=== PATIENT | male | born 1930 | race Caucasian/White ===

== ENCOUNTER 2016-11-01 19:59 | Emergency (ER) | payer OTHER ==
[~2016-11-01] VITALS: Ht 172.7 cm; Wt 88.0 kg
[~2016-11-01 19:59] MED LIST: ACTOS 45 MG45 M1 PO; AMARYL2 MG PO; AMARYL4 MG PO; AMLODIPINE BESY10 MG PO; APAP650 PO; ASPIR 8181 MG PO; ATORVASTATIN CA20 MG PO; AVELOX 400 MG400 MG PO; B-100 COMPLEX1 EAC1 PO; BRILINTA90 MG PO; CALTRATE-600 W1 EACH PO; CASODEX 50 MG T50 M1 PO; ELIQUIS2.5 MG PO; ELIQUIS5 MG PO; FLOMAX PO; GLUCOVANCE 5-51 EACH PO; GLYSET PO; IRON; JANUVIA50 MG PO; K-DUR 20 MEQ T20 MEQ PO; LASIX 20 MG TAB20 MG; LASIX 20 MG TAB20 MG PO; LEVOTHYROXINE100 MC1 PO; LIPITOR 20 MG T20 M1 PO; LISINOPRIL2.5 MG PO; LISINOPRIL5 MG PO; LOTREL 5-20 MG1 EACH PO; LOVAZA1000 MG PO; LUPRON; LUPRON DEPOT22.5 MG IM; NEURONTIN 300300 M1 PO; NEURONTIN300 MG PO; PIOGLITAZONE15 MG; PLAVIX 75 MG TA75 M1 PO; PREDNISONE 5 MG5 MG PO; PROLIA60 MG/1 ML SQ; SYNTHROID100 MCG PO; TRIPILIX PO; VITAMIN B-625 MG PO; VITAMIN D1000 UNI1 PO; XGEVA120 MG/1.7 SQ
[2016-11-01] MEDS ORDERED: TRAMADOL 50 MG50 MG PO (21:21)
[2016-11-01] MEDS ORDERED: KEFLEX500 MG PO (21:21)
== END 2016-11-01 22:33 | disposition home or self-care (01) ==
LOC: ER 19:59
DX: S92.411B Displaced fracture of proximal phalanx of right great toe, initial encounter for open fracture (principal); I10 Essential (primary) hypertension; E11.9 Type 2 diabetes mellitus without complications; I25.2 Old myocardial infarction; Z95.9 Presence of cardiac and vascular implant and graft, unspecified; Z85.46 Personal history of malignant neoplasm of prostate; W22.8XXA Striking against or struck by other objects, initial encounter; Y93.89 Activity, other specified; Y92.89 Other specified places as the place of occurrence of the external cause; Y99.8 Other external cause status

== ENCOUNTER → 2019-02-14 | Outpatient (CLI) | payer OTHER ==
[~2019-02-14] MED LIST changes: +KEFLEX500 MG PO; +TRAMADOL 50 MG50 MG PO
== END ==
LOC: SJCVC 11:34
DX: I13.0 Hypertensive heart and chronic kidney disease with heart failure and stage 1 through stage 4 chronic kidney disease, or unspecified chronic kidney disease (principal); I50.9 Heart failure, unspecified; N18.9 Chronic kidney disease, unspecified; I25.10 Atherosclerotic heart disease of native coronary artery without angina pectoris; I48.91 Unspecified atrial fibrillation; E78.00 Pure hypercholesterolemia, unspecified; E78.5 Hyperlipidemia, unspecified; I25.2 Old myocardial infarction; Z79.82 Long term (current) use of aspirin; Z79.899 Other long term (current) drug therapy; Z87.891 Personal history of nicotine dependence

== ENCOUNTER → 2019-02-14 | Outpatient (CLI) | payer OTHER | LOC: SJCVC 12:24 | DX: I13.0 Hypertensive heart and chronic kidney disease with heart failure and stage 1 through stage 4 chronic kidney disease, or unspecified chronic kidney disease (principal); I50.9 Heart failure, unspecified; N18.9 Chronic kidney disease, unspecified; I25.10 Atherosclerotic heart disease of native coronary artery without angina pectoris; I48.91 Unspecified atrial fibrillation; E78.00 Pure hypercholesterolemia, unspecified; I25.2 Old myocardial infarction; E78.5 Hyperlipidemia, unspecified; Z79.82 Long term (current) use of aspirin; Z79.899 Other long term (current) drug therapy ==

== ENCOUNTER → 2019-02-14 | Outpatient (CLI) | payer OTHER ==
--- NOTE | 2019-02-14 12:10 | 2DMMODE ---
[facility] [place] [place] [address] 2 D/M-MODE ECHOCARDIOGRAM Name: ANYA MOTA Room #: REG [facility]#: [id number] Admission: 02/14/19 Attend Phys: Chidi Hurt MD Discharge: Date of : 30 Report #: [id number] THIS REPORT FOR: //name// APPROVED REPORT Study performed: 02/14/2019 11:15:21 EXAM: Comprehensive 2D, Doppler, and color-flow Echocardiogram Patient Location: Out-Patient Status: routine BSA: 2.00 HR: 60 bpm BP: 170/68 mmHg Rhythm: Frequent PVCs Other Information Study Quality: Adequate Indications Short of breath, cardiomyopathy, history of CAD, stent. 2D Dimensions RVDd: 47.44 mm IVSd: 12.00 (7-11mm) LVOT Diam: 22.71 (18-24mm) LVDd: 61.96 mm PWd: 9.81 (7-11mm) Ascending Ao: 36.59 (22-36mm) LVDs: 51.66 (25-40mm) Aortic Root: 36.25 mm Volumes Left Atrial Volume (Systole) Single Plane 4CH: 117.59 mL Single Plane 2CH: 112.01 mL LA ESV Index: 61.00 mL/m2 Aortic Valve AoV Peak Shad.: 1.54 m/s AO Peak Gr.: 9.48 mmHg LVOT Max P.35 mmHg LVOT Max V: 1.26 m/s MAG Vmax: 3.31 cm2 Mitral Valve MV Decel. Time: 175.48 ms MV E Max Shad.: 1.10 m/s [facility] [address] [place] [address] 2 D/M-MODE ECHOCARDIOGRAM Name: ANYA MOTA Room #: REG [facility]#: [id number] Admission: 02/14/19 Attend Phys: Chidi Hurt MD Discharge: Date of : 30 Report #: [id number] Pulmonary Valve PV Peak Shad.: 0.81 m/s PV Peak Gr.: 2.60 mmHg Tricuspid Valve TR Peak Shad.: 3.62 m/s RAP Estimate: 5.00 mmHg TR Peak Gr.: 53.00 mmHg PA Pressure: 58.00 mmHg Left Ventricle Left ventricle is dilated. Mild basal septal hypertrophy is present. Left ventricular systolic function is moderately decreased. LVEF is 40%. This study is not technically sufficient to allow evaluation of the LV diastolic function. Right Ventricle Right ventricle is dilated. The right ventricular systolic function is normal. Atria Left atrium is severely dilated. Right atrium is moderately dilated. Aortic Valve The aortic valve is normal in structure. Leaflets are mildly thickened and calcified. Trace aortic regurgitation. There is no aortic valvular stenosis. Mitral Valve The mitral valve is normal in structure. Mild mitral annular calcification. Moderate mitral regurgitation. No evidence of mitral valve stenosis. Tricuspid Valve The tricuspid valve is normal in structure. Mild tricuspid regurgitation. Estimated PAP is 55-60mmHg. Pulmonic Valve Pulmonic valve is not well visualized. Trace pulmonic regurgitation. Great Vessels The aortic root is normal in size. The ascending aorta is normal in size. IVC is normal in size and collapses >50% with inspiration. Pericardium [facility] [address] [place] [address] 2 D/M-MODE ECHOCARDIOGRAM Name: ANYA MOTA Room #: REG [facility]#: [id number] Admission: 02/14/19 Attend Phys: Chidi Hurt MD Discharge: Date of : 30 Report #: [id number] There is no pericardial effusion. Right pleural effusion noted. <Conclusion> Left ventricle is dilated. Left ventricular systolic function is moderately decreased. Left atrium is severely dilated. Right atrium is moderately dilated. Trace aortic regurgitation. Moderate mitral regurgitation. Mild tricuspid regurgitation. Estimated PAP is 55-60mmHg. <ELECTRONICALLY SIGNED> By: Chidi Hurt MD 02/14/19 1209 08 08 Chidi Hurt MD /INF
== END ==
LOC: CV 10:54
DX: I08.3 Combined rheumatic disorders of mitral, aortic and tricuspid valves (principal); I25.10 Atherosclerotic heart disease of native coronary artery without angina pectoris

== ENCOUNTER → 2019-03-04 | Outpatient (CLI) | payer OTHER | END | disposition home or self-care (01) | LOC: SJCVCIMAG 09:30 → NUC 12:04 → SJCVCIMAG 16:12 | DX: I25.10 Atherosclerotic heart disease of native coronary artery without angina pectoris (principal); I48.91 Unspecified atrial fibrillation; I25.5 Ischemic cardiomyopathy; I13.0 Hypertensive heart and chronic kidney disease with heart failure and stage 1 through stage 4 chronic kidney disease, or unspecified chronic kidney disease; I50.9 Heart failure, unspecified; N18.9 Chronic kidney disease, unspecified; E11.22 Type 2 diabetes mellitus with diabetic chronic kidney disease; E03.9 Hypothyroidism, unspecified; Z87.891 Personal history of nicotine dependence; Z79.82 Long term (current) use of aspirin ==

== ENCOUNTER → 2019-03-25 | Outpatient (CLI) | payer OTHER | LOC: SJCVC 12:45 | DX: N18.9 Chronic kidney disease, unspecified (principal) ==

== ENCOUNTER → 2019-06-03 | Outpatient (CLI) | payer OTHER | LOC: SJCVC 14:24 | DX: R94.31 Abnormal electrocardiogram [ECG] [EKG] (principal); I48.91 Unspecified atrial fibrillation; I44.7 Left bundle-branch block, unspecified; I25.10 Atherosclerotic heart disease of native coronary artery without angina pectoris; I13.0 Hypertensive heart and chronic kidney disease with heart failure and stage 1 through stage 4 chronic kidney disease, or unspecified chronic kidney disease; I50.9 Heart failure, unspecified; N18.9 Chronic kidney disease, unspecified; E78.00 Pure hypercholesterolemia, unspecified ==

== ENCOUNTER → 2019-07-01 | Outpatient (CLI) | payer OTHER | LOC: SJCVC 14:13 | PROVIDERS: ATTEND Internal Medicine Cardiovascular Disease | DX: N18.9 Chronic kidney disease, unspecified (principal) ==

== ENCOUNTER → 2019-09-02 | Outpatient (CLI) | payer OTHER | LOC: SJCVC 10:47 | PROVIDERS: ATTEND Internal Medicine Cardiovascular Disease | DX: R94.31 Abnormal electrocardiogram [ECG] [EKG] (principal); I25.10 Atherosclerotic heart disease of native coronary artery without angina pectoris; E78.00 Pure hypercholesterolemia, unspecified; I48.91 Unspecified atrial fibrillation; E11.22 Type 2 diabetes mellitus with diabetic chronic kidney disease; I13.0 Hypertensive heart and chronic kidney disease with heart failure and stage 1 through stage 4 chronic kidney disease, or unspecified chronic kidney disease; I50.9 Heart failure, unspecified; N18.9 Chronic kidney disease, unspecified; Z79.899 Other long term (current) drug therapy; Z87.891 Personal history of nicotine dependence ==

== ENCOUNTER → 2019-09-30 | Outpatient (CLI) | payer OTHER ==
[~2019-09-30] MED LIST changes: +ACTOS 45 MG45 MG PO; -PIOGLITAZONE15 MG
[2019-09-30 14:02] VITALS: BP 116/41
[2019-09-30 14:18] VITALS: BP 108/43
[2019-09-30 14:30] VITALS: BP 97/43
[2019-09-30 14:58] VITALS: BP 105/33
[2019-09-30 15:00] VITALS: BP 105/33
--- NOTE | 2019-09-30 15:00 | NUR ---
HERE FOR 1ST OF TWO INJECTAFER INFUSIONS. REPORTS FEELING WELL, NO CONCERNS NOTED. TOLERATED INFUSION WITHOUT INCIDENT, VSS. BRADYCARDIC BUT STATES THAT IS NORMAL FOR HIM. HR IRREGULAR WELL. PT ASYMPTOMATIC WITH THIS. TEACHING DONE, REVIEWED WHAT TO EXPECT, SCHEDULED FOR RETURN VISIT NEXT WEEK ON . DTR WITH PT TODAY AND LIVES WITH PT. SHE WILL BRIN HIM BACK FOR NEXT APPT. DISMISSED IN STABLE CONDITION.
== END ==
LOC: OPONC 07:56
PROVIDERS: ATTEND Internal Medicine Nephrology
DX: N18.3 Chronic kidney disease, stage 3 (moderate) (principal); D63.1 Anemia in chronic kidney disease
CPT/HCPCS: 95000

== ENCOUNTER → 2019-10-07 | Outpatient (CLI) | payer OTHER ==
[2019-10-07 14:15] VITALS: BP 116/40
[2019-10-07 15:05] VITALS: BP 127/46
== END ==
LOC: OPONC 08:55
PROVIDERS: ATTEND Internal Medicine Nephrology
DX: N18.3 Chronic kidney disease, stage 3 (moderate) (principal); D63.1 Anemia in chronic kidney disease
CPT/HCPCS: 95000

== ENCOUNTER → 2020-01-09 | Outpatient (CLI) | payer OTHER | LOC: SJCVC 11:45 | PROVIDERS: ATTEND Internal Medicine Cardiovascular Disease | DX: R94.31 Abnormal electrocardiogram [ECG] [EKG] (principal); I48.91 Unspecified atrial fibrillation; I25.10 Atherosclerotic heart disease of native coronary artery without angina pectoris; E78.00 Pure hypercholesterolemia, unspecified; I13.0 Hypertensive heart and chronic kidney disease with heart failure and stage 1 through stage 4 chronic kidney disease, or unspecified chronic kidney disease; I50.9 Heart failure, unspecified; N18.9 Chronic kidney disease, unspecified; I25.2 Old myocardial infarction; Z79.82 Long term (current) use of aspirin; Z79.899 Other long term (current) drug therapy; Z87.891 Personal history of nicotine dependence ==

== ENCOUNTER → 2020-02-11 | Outpatient (CLI) | payer OTHER | LOC: SJCVCIMAG 11:13 | PROVIDERS: ATTEND Internal Medicine Cardiovascular Disease | DX: I08.3 Combined rheumatic disorders of mitral, aortic and tricuspid valves (principal); R94.31 Abnormal electrocardiogram [ECG] [EKG]; I44.7 Left bundle-branch block, unspecified; I25.10 Atherosclerotic heart disease of native coronary artery without angina pectoris; E11.22 Type 2 diabetes mellitus with diabetic chronic kidney disease; I13.0 Hypertensive heart and chronic kidney disease with heart failure and stage 1 through stage 4 chronic kidney disease, or unspecified chronic kidney disease; I50.9 Heart failure, unspecified; N18.9 Chronic kidney disease, unspecified; Z95.5 Presence of coronary angioplasty implant and graft; E78.00 Pure hypercholesterolemia, unspecified; R60.9 Edema, unspecified; R06.01 Orthopnea; E03.9 Hypothyroidism, unspecified; Z79.82 Long term (current) use of aspirin; Z79.899 Other long term (current) drug therapy; Z87.891 Personal history of nicotine dependence ==

== ENCOUNTER → 2020-02-18 | Outpatient (CLI) | payer OTHER | LOC: SJCVC 16:12 | PROVIDERS: ATTEND Urology | DX: I50.9 Heart failure, unspecified (principal) ==

== ENCOUNTER → 2020-02-25 | Outpatient (CLI) | payer OTHER | LOC: SJCVC 15:01 | PROVIDERS: ATTEND Internal Medicine Cardiovascular Disease | DX: R94.31 Abnormal electrocardiogram [ECG] [EKG] (principal); I44.7 Left bundle-branch block, unspecified; E11.22 Type 2 diabetes mellitus with diabetic chronic kidney disease; I13.0 Hypertensive heart and chronic kidney disease with heart failure and stage 1 through stage 4 chronic kidney disease, or unspecified chronic kidney disease; I50.9 Heart failure, unspecified; N18.9 Chronic kidney disease, unspecified; I25.10 Atherosclerotic heart disease of native coronary artery without angina pectoris; E78.00 Pure hypercholesterolemia, unspecified; I25.2 Old myocardial infarction; E78.5 Hyperlipidemia, unspecified; Z79.899 Other long term (current) drug therapy; Z87.891 Personal history of nicotine dependence ==

== ENCOUNTER → 2020-03-31 | Outpatient (CLI) | payer OTHER | LOC: SJCVC 15:19 | PROVIDERS: ATTEND Internal Medicine Cardiovascular Disease | DX: E11.22 Type 2 diabetes mellitus with diabetic chronic kidney disease (principal); I13.0 Hypertensive heart and chronic kidney disease with heart failure and stage 1 through stage 4 chronic kidney disease, or unspecified chronic kidney disease; I50.20 Unspecified systolic (congestive) heart failure; N18.30 Chronic kidney disease, stage 3 unspecified; I48.91 Unspecified atrial fibrillation; I42.9 Cardiomyopathy, unspecified; E78.00 Pure hypercholesterolemia, unspecified; Z95.5 Presence of coronary angioplasty implant and graft; Z79.82 Long term (current) use of aspirin; Z79.899 Other long term (current) drug therapy ==

== ENCOUNTER 2020-05-11 13:13 | Inpatient (IN) | payer OTHER ==
[~2020-05-11] VITALS: Ht 177.8 cm; Wt 88.3 kg
[~2020-05-11 13:13] MED LIST changes: +ADULT ASPIRIN R81 MG PO
[2020-05-11 13:33] VITALS: BP 105/46
[2020-05-11 13:39] LABS: ABSOLUTE NEUTROPHILS 4.4 thou/uL (1.4-8.2); BASOPHILS 1.4 % (0.0-2.0); EOSINOPHILS 3.1 % (0.0-3.0); HEMATOCRIT 29.4 % (42.0-52.0); HEMOGLOBIN 9.6 gm/dL (14.0-18.0); MCH 29.2 pg (26.0-34.0); MCHC 32.6 g/dL (28.0-37.0); MCV 89.6 fL (80.0-100.0); MONOCYTES 14.3 % (1.0-8.0); PLATELET COUNT 308 thou/uL (150-400); POLYS 58.2 % (36.0-66.0); RBC 3.28 mil/uL (4.50-6.00); RDW 15.4 % (10.5-14.5); WBC 7.6 thou/uL (4.0-11.0)
[2020-05-11 13:49] LABS: ANION GAP 11 mmol/L (7-16); BUN 53 mg/dL (7-18); CALCIUM 9.3 mg/dL (8.5-10.1); CHLORIDE 100 mmol/L (98-107); CO2 25 mmol/L (21-32); CREATININE 2.4 mg/dL (0.7-1.3); GLUCOSE 146 mg/dL (74-106); POTASSIUM 4.3 mmol/L (3.5-5.1); SODIUM 136 mmol/L (136-145)
[2020-05-11] MEDS ORDERED: TORSEMIDE20 MG PO (13:57)
[2020-05-11 13:59] LABS: ALBUMIN 2.9 g/dL (3.4-5.0); SGOT 19 U/L (15-37); SGPT 15 U/L (16-63); TOTAL BILIRUBIN 0.5 mg/dL (0.2-1.0); TROPONIN-I <0.06 ng/mL (<0.06)
[2020-05-11] MEDS ORDERED: KLOR-CON M2020 MEQ PO (13:59)
[2020-05-11] MEDS ORDERED: AMARYL4 MG PO (14:07)
[2020-05-11] MEDS ORDERED: IRON325 M1 PO (14:08)
[2020-05-11] MEDS ORDERED: CALTRATE-600 W1 EACH PO (14:09)
[2020-05-11] MEDS ORDERED: XGEVA120 MG/1.7 SUBQ (14:11)
[2020-05-11] MEDS ORDERED: LOVAZA1000 MG PO (14:13)
[2020-05-11] MEDS ORDERED: LUPRON DEPOT22.5 MG IM (14:14)
[2020-05-11] MEDS ORDERED: MIGLITOL PO (14:17)
[2020-05-11 14:34] LABS: INR 1.14; PROTIME 12.3 Seconds (9.3-11.4)
[2020-05-11 15:10] VITALS: BP 104/47
[2020-05-11 15:51] VITALS: BP 104/47
--- NOTE | 2020-05-11 15:59 | EKG ---
[place] [address] [facility] [place] [address] ELECTROCARDIOGRAM REPORT Name: NAKULANYA Stanton [id number] Admission: 05/11/20 Attend Phys: Discharge: Date of : 30 Report #: [id number] [facility] ED Test Date: 2020-05-11 Test Time: 13:31:20 Pat Name: ANYA MOTA Department: Room: Gender: M New Grad Rn: radha : 1930 Requested By: Binta Solis Order Number: [id number] MD: Jethro Yeager Measurements Intervals [place] Rate: 78 P: VA: QRS: -9 QRSD: 114 T: 141 QT: 440 QTc: 502 Interpretive Statements Ventricular bigeminy Incomplete left bundle branch block ST depression, consider ischemia, lateral lds Compared to ECG 08/04/2014 08:33:15 Ventricular premature complex(es) now present Left bundle-branch block now present ST (T wave) deviation now present Intraventricular conduction delay no longer present Myocardial infarct finding no longer present T-wave abnormality no longer present Possible ischemia still present Electronically Signed On 05-11-2020 15:59:08 CDT by Jethro Yeager [email or web address] <ELECTRONICALLY SIGNED> By: Jethro Yeager MD, [facility] 05/11/20 1559 1331 1331 Jethro Yeager MD, FAC /EPI
[2020-05-11 16:26] VITALS: BP 137/41
[2020-05-11 17:45] LABS: CLARITY CLOUDY; COLOR DARK RED; SOURCE PLEURAL; TOTAL VOLUME 55 mL
[2020-05-11 17:46] LABS: BF RBC 65 /mm3
--- NOTE | 2020-05-11 18:08 | NUR ---
RECEIVED PT FROM ER. PT IS AXOX4, PLEASANT. PT DAUGHTER AT THE BEDSIDE. ADMISSION COMPLETED. PT HAS SOA ON EXERTION. PT BROUGHT WALKER FROM HOME, WALKER IN PT ROOM. PT USES URINAL AT THE BEDSIDE. PT VS BP SOFT, AFEBRILE; AFIB ON SOLDERING MACHINE TENDER. PT DENIES PAIN. POC IS ABX THERAPY. FALL PRECAUTIONS IN PLACE. NO CONCERNS AT THIS TIME.
[2020-05-11 18:34] LABS: BF MACROPHAGE 37 %; BF NEUTROPHILS 14 %
[2020-05-11 20:15] VITALS: BP 124/55
[2020-05-12 05:17] LABS: ABSOLUTE NEUTROPHILS 3.3 thou/uL (1.4-8.2); BASOPHILS 0.9 % (0.0-2.0); CHOLESTEROL 107 mg/dL (<200); EOSINOPHILS 2.2 % (0.0-3.0); HDL CHOLESTEROL 44 mg/dL (>40); HEMATOCRIT 27.3 % (42.0-52.0); HEMOGLOBIN 8.9 gm/dL (14.0-18.0); LDL CHOLESTEROL 47 mg/dL (<100); LYMPHOCYTES 24.7 % (24.0-44.0); MCH 29.1 pg (26.0-34.0); MCHC 32.7 g/dL (28.0-37.0); MCV 89.1 fL (80.0-100.0); MONOCYTES 15.3 % (1.0-8.0); PLATELET COUNT 265 thou/uL (150-400); POLYS 56.9 % (36.0-66.0); RBC 3.07 mil/uL (4.50-6.00); RDW 15.7 % (10.5-14.5); TC:HDL 2.4 Ratio (Not establshd); TRIGLYCERIDE 83 mg/dL (<150); VLDL 17 mg/dL (<40); WBC 5.8 thou/uL (4.0-11.0)
[2020-05-12 05:28] LABS: CALCIUM 8.8 mg/dL (8.5-10.1); CREATININE 2.1 mg/dL (0.7-1.3); MAGNESIUM 2.3 mg/dL (1.8-2.4)
[2020-05-12 05:34] VITALS: BP 123/39
[2020-05-12 05:51] LABS: SERUM ASSESSMENT Clear
--- NOTE | 2020-05-12 07:16 | NUR ---
PATIENT CARES WERE ASSUMED AT SHIFT CHANGE. PATIENT WAS ASSESSED AND MEDS WERE PASSED. PATIENT IS A BIG FAN OF COFFEE AND HAD SEVERAL REQUEST FOR COFFEE. PATIENT DID SLEEP MOST OF THIS SHIFT. ROUNDS WERE DONE.
[2020-05-12 08:00] VITALS: BP 116/50
--- NOTE | 2020-05-12 11:20 | NUR ---
Case opened to follow for dc planning support. Freight Elevator Operator visited with the pt at bedside and case discussed with the care team. The pt was A&ox4 and indicates that he lives at home with his and their dtr Josefina lives with them. She helps with their care as needed. He requested their other dtr Destinee Allison be added to the spokespersons list along with his anita and dtr Josefina. The pt reports he is indep with tx, gait and adl's using a rwalker. He notes that his son in law modified their bathroom and they stay on the main level of the home to avoid stairs. The pt's pcp is Dr. Neto Em. He denies any previous history of hh or SNF and is hoping he can return home with outpt f/u. CM role introduced. Awaiting therapy evaluations and care team recommendations. The pt has had both covid vaccines in April and has gotten weaker since that time. He is being treated for pleural eff/CHF and had fluid removed yesterday. He is on room air and reports feeling better today. Will follow along for possible HH referral pending his progress.
[2020-05-12 12:15] VITALS: BP 110/33
--- NOTE | 2020-05-12 12:42 | 2DMMODE ---
[facility] [place] [address] 2 D/M-MODE ECHOCARDIOGRAM Name: ANYA MOTA Room #: 211-P ADM IN M.R.#: [id number] Admission: 05/11/20 Attend Phys: Torey Guzman MD Discharge: Date of : 30 Report #: [id number] THIS REPORT FOR: cc: Neto Em MD, Kevin R. MD Park, Jin S. MD ~ APPROVED REPORT Study performed: 05/12/2020 08:01:00 EXAM: Comprehensive 2D, Doppler, and color-flow Echocardiogram Patient Location: Bedside Room #: 211 Status: routine BSA: 2.04 HR: 57 bpm BP: 123/39 mmHg Rhythm: Atrial Fibrillation Other Information Study Quality: Adequate Indications Congestive Heart Failure Diabetes Atrial Fibrillation Dyspnea CAD Hypertension/HDD 2D Dimensions RVDd: 35.57 mm IVSd: 9.70 (7-11mm) LVOT Diam: 19.34 (18-24mm) LVDd: 48.21 mm PWd: 9.98 (7-11mm) Ascending Ao: 33.09 (22-36mm) LVDs: 35.23 (25-40mm) Left Atrium: 50.53 (27-40mm) Aortic Root: 33.99 mm IVC: 15.00 mm Volumes Left Atrial Volume (Systole) Single Plane 4CH: 73.06 mL Single Plane 2CH: 102.61 mL LA ESV Index: 50.00 mL/m2 [facility] [address] [place] [address] 2 D/M-MODE ECHOCARDIOGRAM Name: CARLHarrietANYA Stanton Room #: 211-P ADM IN .R.#: [id number] Admission: 05/11/20 Attend Phys: Mike Strauss Discharge: Date of : 30 Report #: [id number] Aortic Valve AoV Peak Shad.: 1.55 m/s AO Peak Gr.: 9.56 mmHg LVOT Max P.12 mmHg LVOT Max V: 1.01 m/s MAG Vmax: 1.93 cm2 Pulmonary Valve PV Peak Shad.: 0.98 m/s PV Peak Gr.: 3.85 mmHg Tricuspid Valve TR Peak Shad.: 3.08 m/s TR Peak Gr.: 37.93 mmHg PA Pressure: 45.00 mmHg Left Ventricle The left ventricle is normal size. There is normal left ventricular wall thickness. Left ventricular systolic function is mild to moderately decreased. LVEF is 40-45%. This study is not technically sufficient to allow evaluation of the LV diastolic function due to atrial fibrillation. Right Ventricle The right ventricle is normal size. The right ventricular systolic function is normal. Atria Left atrium is dilated. Right atrium is dilated. Aortic Valve The aortic valve is normal in structure. The Aortic valve is sclerotic. Trace aortic regurgitation. There is no aortic valvular stenosis. Mitral Valve The mitral valve is normal in structure. Mild to moderate mitral regurgitation. No evidence of mitral valve stenosis. Tricuspid Valve The tricuspid valve is normal in structure. There is mild tricuspid regurgitation. Estimated PAP 45 mmHg. There is moderate pulmonary hypertension. Pulmonic Valve The pulmonary valve is normal in structure. There is no pulmonic valvular regurgitation. [facility] [place] [address] [place] [address] 2 D/M-MODE ECHOCARDIOGRAM Name: ANYA MOTA Room #: 211-P [facility] IN ..#: [id number] Admission: 05/11/20 Attend Phys: Mike Strauss Discharge: Date of : 30 Report #: [id number] Great Vessels The aortic root is normal in size. IVC is normal in size and collapses <50% with inspiration. Pericardium There is no pericardial effusion. <Conclusion> The left ventricle is normal size. There is normal left ventricular wall thickness. Left ventricular systolic function is mild to moderately decreased. The right ventricle is normal size. Left atrium is dilated. Trace aortic regurgitation. Mild to moderate mitral regurgitation. There is mild tricuspid regurgitation. Estimated PAP 45 mmHg. <ELECTRONICALLY SIGNED> By: Chidi Hurt MD 05/12/20 1242 1242 1242 Chidi Hurt MD /INF
--- NOTE | 2020-05-12 14:50 | NUR ---
Nutrition: pt admitted with right lung effusion, left lung infiltrates. Seen due to high risk screen for poor intake, weight loss. Pt reports weight loss of around 20# well over a year ago but states he needed to lose it. Was not hungry or doing much at the time. Weights stable > 6 months. Pt has ate nearly 100% of the last 3 meals served here in regular diet. Hx DM. BG 108-177. Do not feel carb controlled diet needed at this time. Pt watches at home and reports BG usually runs 130s. Consider low nutrition risk.
[2020-05-12 15:30] VITALS: BP 96/47
--- NOTE | 2020-05-12 18:07 | NUR ---
RECEIVED PT'S CARE AROUND 0735; PT. ON BED; ALERT; AFIB ON THE MONITOR; DURING AM ASSESSMENT PT. AOX4; NO C/O PAIN; EDUCATED ABOUT CALLING BEFORE GETTING UP FROM BED; ST. UNDERSTANDING; GONE FOR CT BEFORE AM MEDICATIONS; BACK CLOSE TO 1000; AM MEDICATIONS GIVEN; EDUCATED ABOUT NEW MEDICATIONS; ST. UNDERSTANDING; DURING THE AFTERNOON PT'S HR BETWEEN 40-60s; ONE TIME 33; PT. NOT C/O PALPIATIONS OR DIZZINESS; KINGSLEY CHROME PLATER HELPER NOTIFIED; NO NEW ORDERS; MONITORING; UP TO THE CHAIR WITH PT AND OT; PER PT. PT. MIGHT BENEFIT FROM OUT PATIENT THERAPY; IV ANTIBIOTICS STARTED; ABLE TO HAVE BM; ASSESSMENT CHARGED; FOLLOWING POC; WILL PASS ON REPORT;
[2020-05-12 19:35] VITALS: BP 120/47
[2020-05-13] VITALS (7 sets, daily range): BP systolic 103–147; BP diastolic 39–70
[2020-05-13 02:12] LABS: URINE BILIRUBIN NEGATIVE (Negative); URINE BLOOD NEGATIVE (Negative); URINE CLARITY CLEAR; URINE COLOR YELLOW; URINE GLUCOSE-RANDOM* NEGATIVE (Negative); URINE KETONES NEGATIVE (Negative); URINE LEUKOCYTES-REFLEX NEGATIVE (Negative); URINE NITRITE-REFLEX NEGATIVE (Negative); URINE PROTEIN (DIPSTICK) NEGATIVE (Negative); URINE UROBILINOGEN 0.2 E.U./dl (0.2-1.0)
--- NOTE | 2020-05-13 08:00 | NUR ---
PATIENTS CARE WERE ASSUMED AT SHIFT CHANGE. PATIENT WASASSESSED AND MEDS WERE PASSED. PATIENT HAS PROGRESSED WELL AND APPER TO BE READY TO DISCHARGE. PATIENT DOES BRABY DOWN IN HIS DEEPER SLEEP. SEEN TO BE LOW 22. THIS SHIFT SOME WIDE QRS AND CRASH CARD TAKEN TO THE DOOR OF HIS ROOM. DUE TO THE UNSTABLE APPERANCE IN THE TELE STRIP. ROUNDS WERE DONE THIS INFO PASSED IN REPORT
[2020-05-13 10:15] LABS: CALCIUM 8.9 mg/dL (8.5-10.1)
--- NOTE | 2020-05-13 12:07 | PATH ---
[facility] [address] [address] PATHOLOGY RPT PROCEDURE Name: ANYA MOTA Room #: 211-P ADM IN M.R.#: [id number] Admission: 05/11/20 Date of : 30 Discharge: Report #: [id number] Path Case #: [id number] Note [facility] Accession Number: [id number] TESTS RESULT FLAG UNITS REF RANGE LAB Clinician Provided Cytology Information No. of containers..01 Other (Miscellaneous) Source: RIGHT PLEURAL DIAGNOSIS: 02 RIGHT PLEURAL NEGATIVE FOR MALIGNANT EPITHELIAL CELLS. THIS INTERPRETATION INCLUDES EVALUATION OF A CELL BLOCK. SCANT CELLULARITY. RED BLOOD CELLS ARE PRESENT. Pathologist ICD10: 02 J90 Signed out by: 02 Yaneli Herman MD, Pathologist NPI- [id number] Performed by: 01 Christine Rios Snuff Drier ([facility]) Gross description: 01 12ML, OPAQUE RED, 1 TP 1 CB /LCS 05/12/2020 1112 Local FLAG LEGEND: L-Low Normal,H-High Normal,LL-Alert Low,HH-Alert High <-Panic Low,>-Panic High,A-Abnormal,AA-Critical Abnormal Performed at: [address] [place] [address] Renzo Lambert MD, [address] [address] Yaneli Herman MD, Specimen Comment: A courtesy copy of this report has been sent to [phone] Specimen Comment: Report sent to Performed at: [address], [place], [place] [id number] MD Renzo Lambert MD Phone: [phone]
--- NOTE | 2020-05-13 15:04 | NUR ---
PT UP IN THE CHAIR THIS SHIFT. EVALUATED BY PT/OT. DENIED HAVING PAIN OR DISCOMFORT. VSS. NO CONCERNS AT THIS TIME. PT PROGRESSING WELL TOWARDS DISCHARGE GOAL.
[2020-05-13 16:06] LABS: BODY FLUID ALBUMIN 2.4 g/dL (Not Estab.); BODY FLUID AMYLASE 12 U/L (()); BODY FLUID GLUCOSE 25 mg/dL (()); BODY FLUID LDH 924 IU/L (()); BODY FLUID PROTEIN 4.2 g/dL (())
[2020-05-14] VITALS (7 sets, daily range): BP systolic 128–133; BP diastolic 39–50
--- NOTE | 2020-05-14 05:28 | NUR ---
PATIENTS CARES WERE ASSUMED AT SHIFT CHANGE. PATIOENT WAS ASSESSED AND MEDS WERE PASSED. PATIENT APPERS TO DISCHARGE TO HOME WITH HOME HEALTH. DAUGHTER IS A NURSE AND SHE WILL BE HELPPING. HE MAY DISCHARGE TO A SNF AT A LATER DATE, REHAB TO CONSIDER LATER. PATIENT IS READY AND HAS PROGRESSED NICLY TOWARDS DISCHARGE
--- NOTE | 2020-05-14 07:40 | HC ---
[facility] [place] [address] CONSULTATION Name: ANYA MOTA Room #: 211-P ADM IN M.R.#: [id number] Admission: 05/11/20 Attend Phys: Torey Guzman MD Discharge: Date of : 30 Report #: [id number] THIS REPORT FOR: cc: Neto Em MD, Kevin R. MD McKittrick, Richard James MD ~ REQUESTING PHYSICIAN: Cathy Correa. REASON FOR CONSULTATION: History of prostate cancer with pleural effusion. HISTORY OF PRESENT ILLNESS: The patient is an 89-year-old male with a history of prostate cancer, followed by my partner in [place], who has had a very stable PSA at less than 0.01 on antihormone therapy, who presented with increasing shortness of air. An x-ray showed a right-sided pleural effusion. This had 1500 mL thoracentesis on 05/11. This was described as perhaps consistent with old blood. The CAT scan also raised the question about some nodularity along the pleura. Note that cytology is pending. The patient denies any recent fevers or chills. Did have the shortness of air and fatigue. No blood in his urine or stool. PAST MEDICAL HISTORY: Notable for the history of prostate cancer diagnosed in 05/2019. At that time, he had an early metastatic disease. He had a PSA in the 500s. He began on Casodex and Lupron, supposedly had a biochemical relapse in late 2009. Received several cycles of Provenge completed in 07/2011. Begin Xgeva in 04/2011. PET scan 09/2011 had progression and a PSA of 82. Begun on nizoral (?) and hydrocortisone, poorly tolerated, then restarted Lupron. He also was on 13 cycles of Taxotere, last given 04/2012, stopped due to severe asthenia. Has continued on Lupron. PSA has been stable without disease progression. He was started again on Lupron in 07/2019 due to progression of his disease. PAST MEDICAL HISTORY: Also due to hypothyroidism, diabetes and diabetic neuropathy, coronary artery disease with stents, atrial fibrillation, hyperlipidemia, stage 3 chronic kidney disease, also history of cataracts, hernia, retinopathy. Also lists per the records from outside known right pleural effusion. MEDICATIONS: Currently described by the patient or described in the computer include furosemide, Zosyn, glimepiride, atorvastatin, aspirin, pantoprazole, levothyroxine, gabapentin, Tylenol p.r.n., MiraLax p.r.n. SOCIAL HISTORY: The patient is retired, used to be a solo truck driver. PHYSICAL EXAMINATION: GENERAL: The patient appears his stated age. VITAL SIGNS: Height is 5 feet 10 inches or 177 cm, weight 190 pounds or 86.6 [place] [address] CONSULTATION Name: ANYA MOTA Stanton Room #: 211-P [facility] IN M.R.#: [id number] Admission: 05/11/20 Attend Phys: Torey Guzman MD Discharge: Date of : 30 Report #: [id number]. Blood pressure 120/57, O2 sat 96%, pulse 111, temperature 97.9. LUNGS: Mostly clear anterior. HEART: Regular rate. No definite murmur. LYMPHATICS: No enlarged lymph nodes in the supraclavicular, cervical, axillary or inguinal region. ABDOMEN: Slightly obese. EXTREMITIES: Do have some trace edema. ASSESSMENT AND PLAN: 1. Right-sided pleural effusion with questionable old blood, cytology pending, could be related to prostate cancer, but with recent PSA almost undetectable not real likely. We will await cytology. 2. History of prostate cancer, recently on Lupron since summer 2019, relatively stable PSA as an outpatient done 2 weeks ago. 3. Atrial fibrillation, per others. 4. Hypertension, per others. 5. Diabetic neuropathy and retinopathy, per others. 6. Hypertension, per others. 7. Coronary artery disease, per others. 8. Hypothyroid replacement. <ELECTRONICALLY SIGNED> By: Kai Barron MD 05/14/20 0740 0928 1025 Kai Barron MD /nt
--- NOTE | 2020-05-14 09:00 | NUR ---
ASSUMMED CARE FROM THE NIGHT NURSE, LAW LUNDBERG. MONITOR SHOWING AFIB WITH BBB AND FREQUENT TO BIGIMINAL PVC'S. VSS. WILL CONTINUE TO MONITOR,
[2020-05-14 09:16] LABS: HEMOGLOBIN 9.4 gm/dL (14.0-18.0); MCHC 32.3 g/dL (28.0-37.0); MCV 89.9 fL (80.0-100.0); RBC 3.23 mil/uL (4.50-6.00); RDW 15.9 % (10.5-14.5); WBC 6.5 thou/uL (4.0-11.0)
[2020-05-14 09:21] LABS: CALCIUM 8.7 mg/dL (8.5-10.1); CREATININE 1.8 mg/dL (0.7-1.3)
--- NOTE | 2020-05-14 11:35 | NUR ---
CALLED DAUGHTER DANUTA AND UPDATED HER.
--- NOTE | 2020-05-14 13:00 | NUR ---
PATIENT HAVING BIGEMINAL PVD'S. DR RETANA AWARE. ORDERS NOTED. DR WOLF ALSO AWARE OF PATIENT'S RHYTHM. PATIENT IS ALERT AND RESPONSIVE.
[2020-05-14] MEDS ORDERED: HYDROCHLOROTH12.5 M2 PO (13:55)
[2020-05-14] MEDS ORDERED: AUGMENTIN 500-1 EACH PO (13:55)
[2020-05-14] MEDS ORDERED: HYDRALAZINE 2525 MG PO (13:55)
--- NOTE | 2020-05-14 15:15 | NUR ---
DISCHARGED TO HOME WITH DAUGHTER VIA W/C. INSTRUCTED TO CALL DR SANCHEZ'S OFFFICE IF HE HAS INCREASED DYSPNEA, OFFICE NUMBER GIVEN TO THE DAUGHTER. DISCHARGE INSTRUCTIONS REVIEWED WITH PATIENT AND DAUGHTER WHO VERBALIZED UNDERSTANDING. QUESTIONS ADDRESSED AND REASSURANCE GIVEN.
--- NOTE | 2020-05-14 17:34 | NUR ---
Pt dcing home today after consults with onc/pulm. Plan at this time is for outpt f/u. Planning Manager spoke with pt/dtr Josefina and they were agreeable to HH referral. Options reveiwed and they denied preference. Dc environmental emergencies planner faxed referral to [facility] and they can accept for soc this weekend[facility] to [facility] the first visit. No other needs noted.
--- NOTE | 2020-05-16 08:17 | HC ---
[facility] [place] [address] CONSULTATION Name: ANYA MOTA Room #: 211-P [facility] IN M.R.#: [id number] Admission: 05/11/20 Attend Phys: Torey Guzman MD Discharge: 05/14/20 Date of : 30 Report #: [id number] THIS REPORT FOR: cc: Neto Em MD, Kevin R. MD Forman, John M. MD ~ DATE OF SERVICE: 05/14/2020 We were asked to see the patient by Dr. Mtz. HISTORY OF PRESENT ILLNESS: The patient is an 89-year-old who was admitted on 05/11/2020 with shortness of breath. The patient states he has had shortness of breath and fatigue for 3 weeks. The patient relates all of this to a second COVID vaccination on 05/04/2020. Shortly afterwards, he became more fatigued and short of breath. The patient had no side effects with the first vaccine dose. Shortness of breath increases with lying flat. No history of fever, cough, chest pain, nausea, vomiting. The patient has had decreased appetite. PAST HISTORY: Reveals heart failure, coronary artery disease, and atrial fibrillation, treated with Eliquis. OTHER PAST HISTORY: Includes hypertension, diabetes mellitus, prostate cancer with chemo treated in 2009, iron deficiency anemia. MEDICATIONS AT HOME: Includes gabapentin, Januvia, aspirin, atorvastatin, torsemide, potassium, glimepiride, iron, calcium, denosumab, omega-3, Lupron, miglitol, Actos, apixaban, levothyroxine, amlodipine. ALLERGIES: None known. SOCIAL HISTORY: Remote smoking history, quit in the 1950s. 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 REVIEW OF SYSTEMS: CONSTITUTIONAL: Denies fever or chills. EYES: Denies vision change. HENT: Denies headache, hearing change, sinus problems. RESPIRATORY: As mentioned, short of breath. No sputum production. CARDIAC: No specific chest pain or angina, no palpitations. GASTROINTESTINAL: Decreased appetite. No nausea or vomiting. GENITOURINARY: No burning or frequency. [facility] [address] [place] [address] CONSULTATION Name: ANYA MOTA Room #: 211-P [facility] IN [facility].#: [id number] Admission: 05/11/20 Attend Phys: Torey Guzman MD Discharge: 05/14/20 Date of : 30 Report #: [id number] MUSCULOSKELETAL: No bone or joint pain. SKIN: No rash or infection. NEUROLOGIC: Generalized weakness, but no focal motor or sensory dysfunction. ENDOCRINE: No goiter or tremor. PHYSICAL EXAMINATION: VITAL SIGNS: Temperature 36.6, heart rate 52, respiratory rate 18, blood pressure 128/50. GENERAL: The patient is lying in bed, seems relatively comfortable. HEENT: No scleral icterus, no arcus. NECK: No mass, no bruit. CHEST: Decreased breath sounds right base with bronchial breath sounds audible. HEART: Rate is relatively slow and rhythm seems regular. ABDOMEN: Soft, somewhat protuberant, no tenderness. EXTREMITIES: No clubbing, cyanosis or edema, 2+ popliteal pulses bilaterally. SKIN: No rash or infection. MUSCULOSKELETAL: No bone or joint asymmetry or deformity. NEUROLOGIC: No obvious motor or sensory dysfunction. ASSESSMENT: The patient has a large right pleural effusion on chest x-ray. Thoracentesis was done, a 1500 mL, but repeat chest CT shows either incomplete drainage and/or reaccumulation of fluid. I reviewed the studies with the radiologist, they are not enthusiastic about repeating thoracentesis as they feel that it will be futile. There is enough honeycombing of the effusion and pleural rind and I suspect that some sort of video-assisted thoracoscopy will be necessary to diagnose and assess the fluid with possible thoracotomy and decortication. All of this will be shared with the patient and in the meantime, we may need to stop the anticoagulation preparatory for surgery. Thank you for the consult. <ELECTRONICALLY SIGNED> By: Steve Ch MD 05/16/20 0817 0822 0854 Steve Ch MD /nt
[2020-05-17 11:05] LABS: SOURCE CHEST
--- NOTE | 2020-05-19 13:49 | NUR ---
Note Given: Y Facility List Provided:Y Facility Gisele: None chosen at this time Kirti Fong NP discussed BPCI with this pt 05/13/2020
== END 2020-05-14 16:17 | disposition home health service (06) | DRG 291 ==
LOC: ER 13:13 → 2N 16:14 → EROBS 16:14 → 2N 16:15
PROVIDERS: Nurse Practitioner; Physician Assistant; ADMIT Hospitalist; ATTEND Hospitalist
PROC: 0W993ZZ Drainage of Right Pleural Cavity, Percutaneous Approach (ICD-10-PCS; principal; 2020-05-11)
DX: I13.0 Hypertensive heart and chronic kidney disease with heart failure and stage 1 through stage 4 chronic kidney disease, or unspecified chronic kidney disease (principal); J96.01 Acute respiratory failure with hypoxia; N17.0 Acute kidney failure with tubular necrosis; I50.21 Acute systolic (congestive) heart failure; J91.8 Pleural effusion in other conditions classified elsewhere; J98.11 Atelectasis; I38 Endocarditis, valve unspecified; E46 Unspecified protein-calorie malnutrition; E03.9 Hypothyroidism, unspecified; I48.91 Unspecified atrial fibrillation; I25.10 Atherosclerotic heart disease of native coronary artery without angina pectoris; E11.42 Type 2 diabetes mellitus with diabetic polyneuropathy; E11.22 Type 2 diabetes mellitus with diabetic chronic kidney disease; N18.30 Chronic kidney disease, stage 3 unspecified; E11.319 Type 2 diabetes mellitus with unspecified diabetic retinopathy without macular edema; R63.4 Abnormal weight loss; D50.9 Iron deficiency anemia, unspecified; M89.9 Disorder of bone, unspecified; Z85.46 Personal history of malignant neoplasm of prostate; Z79.899 Other long term (current) drug therapy; Z87.891 Personal history of nicotine dependence; Z68.27 Body mass index [BMI] 27.0-27.9, adult; I25.2 Old myocardial infarction; Z95.5 Presence of coronary angioplasty implant and graft; Z92.21 Personal history of antineoplastic chemotherapy; Z79.82 Long term (current) use of aspirin; Z98.49 Cataract extraction status, unspecified eye
CPT/HCPCS: 10081

== ENCOUNTER 2020-05-16 23:12 | Inpatient (IN) | payer OTHER ==
[~2020-05-16] VITALS: Ht 177.8 cm; Wt 84.8 kg
[~2020-05-16 23:12] MED LIST changes: +AUGMENTIN 500-1 EACH PO; +HYDRALAZINE 2525 MG PO; +HYDROCHLOROTH12.5 M2 PO; +IRON325 M1 PO; +KLOR-CON M2020 MEQ PO; +MIGLITOL PO; +TORSEMIDE20 MG PO; +XGEVA120 MG/1.7 SUBQ
[2020-05-16 23:42] VITALS: BP 143/50
[2020-05-17] VITALS (8 sets, daily range): BP systolic 107–152; BP diastolic 48–61
[2020-05-17 00:15] LABS: ABSOLUTE NEUTROPHILS 3.9 thou/uL (1.4-8.2); BASOPHILS 1.2 % (0.0-2.0); EOSINOPHILS 4.2 % (0.0-3.0); HEMOGLOBIN 9.5 gm/dL (14.0-18.0); LYMPHOCYTES 21.2 % (24.0-44.0); MCH 29.5 pg (26.0-34.0); MCHC 32.9 g/dL (28.0-37.0); MCV 89.6 fL (80.0-100.0); MONOCYTES 14.6 % (1.0-8.0); PLATELET COUNT 303 thou/uL (150-400); POLYS 58.8 % (36.0-66.0); RBC 3.23 mil/uL (4.50-6.00); WBC 6.6 thou/uL (4.0-11.0)
[2020-05-17 00:17] LABS: ANION GAP 13 mmol/L (7-16); BUN 33 mg/dL (7-18); CALCIUM 9.5 mg/dL (8.5-10.1); CHLORIDE 103 mmol/L (98-107); CO2 24 mmol/L (21-32); CREATININE 1.8 mg/dL (0.7-1.3); GLUCOSE 209 mg/dL (74-106); POTASSIUM 4.4 mmol/L (3.5-5.1); SODIUM 140 mmol/L (136-145)
[2020-05-17 00:26] LABS: ALBUMIN 2.5 g/dL (3.4-5.0); SGOT 25 U/L (15-37); SGPT 12 U/L (30-65); TOTAL BILIRUBIN 0.5 mg/dL (0.2-1.0); TOTAL PROTEIN 7.4 g/dL (6.4-8.2); TROPONIN-I <0.06 ng/mL (<0.06)
[2020-05-17 03:17] LABS: HEMATOCRIT 26.9 % (42.0-52.0); HEMOGLOBIN 8.8 gm/dL (14.0-18.0); MCHC 32.6 g/dL (28.0-37.0); RBC 3.02 mil/uL (4.50-6.00); RDW 15.8 % (10.5-14.5); WBC 6.1 thou/uL (4.0-11.0)
[2020-05-17 03:34] LABS: CALCIUM 9.5 mg/dL (8.5-10.1); CREATININE 1.8 mg/dL (0.7-1.3); POTASSIUM 4.2 mmol/L (3.5-5.1)
--- NOTE | 2020-05-17 05:51 | NUR ---
RECEIVED REPORT FROM [facility] ED RN.PATIENT ARRIVED TO ROOM 200 AROUND 0130 AM.PT A/O X 3.DENIES PAIN.C/O A LITTLE SOB.ON ROOM AIR.NPO SINCE MIDNIGHT FOR A POSSIBLE THORACENTESIS TODAY.POC CONTINUED.
--- NOTE | 2020-05-17 07:11 | EKG ---
[address] [employer] [place] [address] ELECTROCARDIOGRAM REPORT Name: CHRISTINBAYANYA Stanton Room #: 200-I ADM IN M.R.#: [id number] Admission: 05/17/20 Attend Phys: Kashif Burger MD Discharge: Date of : 30 Report #: [id number] [facility] ED Test Date: 2020-05-16 Test Time: 23:18:10 Pat Name: ANYA MOTA Department: Room: 200 Gender: M Cyber Incident Analyst: JCHAISIRENA : 1930 Requested By: Eze Joe Order Number: [id number] MD: Jethro Yeager Measurements Intervals Gable Rate: 91 P: [place]: QRS: 15 QRSD: 112 T: 148 QT: 398 QTc: 490 Interpretive Statements Atrial fibrillation Paired ventricular premature complexes Borderline intraventricular conduction delay Repol abnrm, severe global ischemia (LM/MVD) Compared to ECG 05/11/2020 13:31:20 Early repolarization now present Left bundle-branch block no longer present ST (T wave) deviation no longer present Possible ischemia still present Electronically Signed On 05-17-2020 7:11:22 CDT by Jethro Yeager [email or web address] <ELECTRONICALLY SIGNED> By: Jethro Yeager MD, FAC 05/17/20 0711 2318 2318 Jethro Yeager MD, FAC /EPI
--- NOTE | 2020-05-17 14:01 | NUR ---
PT OFF UNIT TO U/S.
[2020-05-17 14:34] LABS: INR 1.11
--- NOTE | 2020-05-17 14:59 | NUR ---
PT RETURN FROM IR TO ROOM.
[2020-05-17 15:13] LABS: CLARITY TURBID; COLOR DARK RED; SOURCE RIGHT CHEST; TOTAL VOLUME 56 mL
[2020-05-17 15:30] LABS: BF NUCLEATED CELLS 156 /mm3; BF RBC 228758 /mm3
[2020-05-17 16:43] LABS: BF MACROPHAGE 16 %; BF NEUTROPHILS 30 %
[2020-05-18] VITALS (9 sets, daily range): BP systolic 30–131; BP diastolic 12–65
--- NOTE | 2020-05-18 00:17 | NUR ---
NPO AFTER MIDNIGHT.PROCEDURE SITE C/D/I COVERED WITH BANDAID.CLEAR LUNG SOUND.C/O DYSPNEA AROUND 2340.SPO2 97%.DENIES ANY PAIN.POC CONTINUED.
[2020-05-18 09:27] LABS: SOURCE THORACENTESIS
--- NOTE | 2020-05-18 12:23 | NUR ---
PT PLACED ON HOLD FROM P.T. THIS DATE DUE TO PLAN FOR SURGICAL INTERVENTION. REQUEST NEW POST OP ORDERS ONCE APPROPRIATE TO RESUME THERAPY.
--- NOTE | 2020-05-18 14:51 | NUR ---
ASSESSMENT: CM REVIEWED CHART. CM ATTMEPTED TO TALK WITH PT BUT HE IS OUT OF THE ROOM. CM REACHED OUT TO PATIENTS DAUGHTER AUGIE WHO LIVES WITH PATIENT AND HIS IN THEIR HOME. PT HAS ABOUT 3 STEPS TO ENTER THE HOME WITH ALL HIS NEEDS ON THE MAIN LEVEL. PT USES A WALKER FOR AMBULATION. PT IS CURRENTLY IN SERVICES WITH [facility]. CM NOTIFIED [facility] OF PTS ADMISSION AND FAXED REFERRAL. PT IS INDEPENDENT WITH ADLS. PT HAS A SHOWER CHAIR WELL GRAB BARS PER THE DAUGHTER. DAUGHTER AUGIE STATING SHE CAN HELP PT OUT NEEDED AND CAN ASSIST WITH ERRANDS, COOKING, AND CLEANING. PTS PCP IS DR. RUFINO HALL. PT HAS HAD BOTH COVID VACCINES BACK IN APRIL. PT WAS ADMITTED DUE TO DYSPNEA AND WAS FOUND TO HAVE RIGHT LARGE PLEURAL EFFUSION AND PT HAD THORACENTESIS YESTERDAY. PT JUST RECENTLY WAS ALSO HERE 05/11/20 AND ALSO HAD THORACENTESIS AND WAS NEGATIVE FOR MALIGNANCY. PT IS ON [facility] ANTICOAGULATION WHICH WAS BEING HELD FOR PROCEDURE. PLANS ARE FOR PT TO RETURN HOME ONCE MEDICALLY STABLE WITH [facility] IF ABLE. CM WILL CONTINUE TO FOLLOW TO ASSIST NEEDED.
--- NOTE | 2020-05-18 17:22 | NUR ---
RECIEVED PT FROM RECOVERY ROOM. PLACED ON MONITOR, UNABLE TO OBTAIN TEMP CYNDIE KAMLA PLACED. 4 R LAT CHEST TUBES INTACT WITH AIR LEAK. SEROUS SANQUINOUS DRAINAGE. FENTANYL CENTRIFUGAL WAX MOLDER BUTTON REACHABLE.
[2020-05-18 18:14] LABS: HEMATOCRIT 25.6 % (42.0-52.0); HEMOGLOBIN 8.3 gm/dL (14.0-18.0)
[2020-05-18 18:20] LABS: APTT 25.4 Seconds (24.5-32.8); INR 1.14; PROTIME 12.4 Seconds (9.3-11.4)
--- NOTE | 2020-05-18 18:50 | NUR ---
CALLED DR. FOUNTAIN RE.. LOW URINE OUTPUT, HYPOTHEMIA, CHEST TUBE LEAK AND 900CC OUT. AND LAB WORK. ORDERS GIVEN.
[2020-05-19] VITALS (25 sets, daily range): BP systolic 84–168; BP diastolic 32–59
[2020-05-19 06:27] LABS: HEMOGLOBIN 8.1 gm/dL (14.0-18.0); MCH 29.1 pg (26.0-34.0); MCHC 32.6 g/dL (28.0-37.0); MCV 89.1 fL (80.0-100.0); RBC 2.8 mil/uL (4.50-6.00); RDW 15.6 % (10.5-14.5); WBC 9.9 thou/uL (4.0-11.0)
[2020-05-19 06:32] LABS: CALCIUM 8.4 mg/dL (8.5-10.1); CREATININE 2.1 mg/dL (0.7-1.3); POTASSIUM 4.6 mmol/L (3.5-5.1)
--- NOTE | 2020-05-19 08:16 | O ---
[facility] [place] [place] [address] OPERATIVE REPORT Name: ANYA MOTA Room #: 250-P ADM IN M.R.#: [id number] Admission: 05/17/20 Attend Phys: Abraham Cortez MD Discharge: Date of : 30 Report #: [id number] THIS REPORT FOR: cc: Neto Em MD, Kevin R. MD Forman,Steve Tidwell MD ~ DATE OF SERVICE: 05/18/2020 PREOPERATIVE DIAGNOSIS: Clotted hemothorax. POSTOPERATIVE DIAGNOSIS: Clotted hemothorax. OPERATIONS: Bronchoscopy, right video-assisted thoracoscopy, right thoracotomy with decortication. SURGEON: Steve Ch MD PILER: JATIN Betancourt ANESTHESIA: General. INDICATIONS: The patient is an 89-year-old who presents with a loculated pleural effusion. The patient had had a thoracentesis for 1500 mL of fluid, but this appeared to make no significant dent in the pleural collection. The patient was discharged to home, but returned within several days with shortness of breath. Repeat thoracentesis done yesterday revealed 300 mL of fluid, but there was still a significant pleural component and the patient was taken to the operating room today for both diagnosis and treatment of this pleural collection. By history, the patient takes apixaban for atrial fibrillation and he sustained a fall in February, this was thought to be the etiology for a clotted hemothorax. FINDINGS AND TECHNIQUE: After general anesthesia was established, flexible diagnostic bronchoscopy was performed. No endobronchial lesions were noted. A double lumen endotracheal tube was placed and its position checked under bronchoscopic guidance. The patient was positioned with right side up. Exposure was obtained through video-assisted thoracoscopy ports. There was a large amount of clotted blood in the chest and a certain amount of old liquid blood. This was aspirated, but it was clear that the lung was not expansile due to a thick pleural rind. In addition, the visceral pleura was quite thick. There are no focal lesions seen to suggest a malignancy. [facility] [address] [place] [address] OPERATIVE REPORT Name: ANYA MOTA Room #: 250-P [facility] IN M.R.#: [id number] Admission: 05/17/20 Attend Phys: Abraham Cortez MD Discharge: Date of : 30 Report #: [id number] Exposure was extended to perform a thoracotomy to better cleanse the pleural space and decorticate the lung. Chest was entered through an available interspace and exposure revealed a large amount of old blood and clot in the chest. In addition, the parietal pleura itself was quite thick. A sample of this was sent for frozen section and an indeterminate answer was obtained. The differential is broad including atypical cells, but no definitive diagnosis was available to us. A decortication was performed. All areas of the lung were decorticated to the best of our ability of thick investing visceral peel. In some areas, the peel came away from the lung nicely, but another lung surface tore and it was not possible to decorticate. This is in my experience characteristic of malignancy, but not definitive by any means. When the entire lung had been decorticated to the best of our ability, additional incisions were made to allow expansion of the lung where the pleura was too thick to be stripped from the lung. When the lung had been released as such, hemostasis was ascertained. The chest was irrigated with copious amounts of saline and then 4 tubes were placed to drain the anterior, lateral, posterior, and inferior pleural regions. Chest was then closed in the usual fashion and then the patient was taken to the recovery area in good condition, having tolerated the procedure well. All counts reported as correct. <ELECTRONICALLY SIGNED> By: Stvee Ch MD 05/19/20 0816 1529 1542 Steve Ch MD /nt
[2020-05-19 13:08] LABS: BODY FLUID ALBUMIN 2.2 g/dL (Not Estab.); BODY FLUID AMYLASE 18 U/L (()); BODY FLUID GLUCOSE 4 mg/dL (()); BODY FLUID LDH 2034 IU/L (()); BODY FLUID PROTEIN 4.2 g/dL (())
--- NOTE | 2020-05-19 14:07 | NUR ---
Note Given: Y Facility List Provided:Y Facility Gisele: None chosen at this time Kirti Fong NP discussed BPCI with this pt 05/17/2020
--- NOTE | 2020-05-19 16:47 | NUR ---
FAXED CLINICAL UPDATE TO [facility] RECEIVED CONFIRMATION PT ON SERVICE WITH THEM PRIOR TO ADM..
--- NOTE | 2020-05-19 17:06 | PATH ---
[facility] [address] [place] [address] PATHOLOGY RPT PROCEDURE Name: ANYA MOTA Room #: 250-P ADM IN M.R.#: [id number] Admission: 05/17/20 Date of : 30 Discharge: Report #: [id number] Path Case #: [id number] Note [facility] Accession Number: [id number] TESTS RESULT FLAG UNITS REF RANGE LAB Clinician Provided Cytology Information No. of containers..01 Other (Miscellaneous) Source: PLEURAL FLUID DIAGNOSIS: 02 PLEURAL FLUID INADEQUATE, INSUFFICIENT CELLS FOR STUDY. ESSENTIALLY ACELLULAR SPECIMEN. THIS INTERPRETATION INCLUDES EVALUATION OF A CELL BLOCK. Pathologist ICD10: 02 J90 Signed out by: Yaneli Herman MD, Pathologist NPI- [id number] Performed by: Ingrid Healy, Tree And Shrub Technician ([facility]) Gross description: 01 15ML, RED, 1TP 1CB /LCS 05/18/2020 0537 Local FLAG LEGEND: L-Low Normal,H-High Normal,LL-Alert Low,HH-Alert High <-Panic Low,>-Panic High,A-Abnormal,AA-Critical Abnormal Performed at: [address] [place] [address] Renzo Lambert MD, [address] [phone] Yaneli Herman MD, Specimen Comment: A courtesy copy of this report has been sent to [phone] Specimen Comment: [phone] Specimen Comment: Report sent to DR ZEE / DR HALL Specimen Comment: A duplicate report has been generated due to demographic updates. Performed at: [address], [place], [place] [id number] MD Renzo Lambert MD Phone: [phone]
--- NOTE | 2020-05-19 17:29 | NUR ---
PT TRANSFER TO ROOM 206 ON MONITOR. HOOKED BACK UP TO SX ONCE ARRIVED IN PT NEW ROOM. RT TO BRING PULSE OXIMETER. RN AWARE THIS IS NEEDED. ALL BELONINGS WITH PT. MEDICAL MASSAGE THERAPIST BUTTON REACHABLE.
--- NOTE | 2020-05-19 17:38 | NUR ---
ASSUMED CARE OF PT AROUND 1714. PT A TRANSFER FROM ICU. ALERT AND ORIENTED TIMES FOUR. PT ARRIVED ON THE UNIT WITH FOUR CHEST TUBES THAT WAS CONNECTED TO WALL SUCTION UPON ARRIVAL TO UNIT. VSS, GARIBAY TO TOMMIE, FENTANYL AUTO HEADLIGHT MECHANIC IN PLACE, IVF INFUSING PER ORDER. PT UP SITTING IN THE CHAIR. PT FAMILY AT BEDSIDE. WILL CONTINUE TO MONITOR.
[2020-05-20] VITALS (7 sets, daily range): BP systolic 124–146; BP diastolic 43–75
[2020-05-20 06:01] LABS: HEMATOCRIT 26.5 % (42.0-52.0); HEMOGLOBIN 8.6 gm/dL (14.0-18.0); MCH 29.2 pg (26.0-34.0); MCHC 32.6 g/dL (28.0-37.0); MCV 89.8 fL (80.0-100.0); RBC 2.96 mil/uL (4.50-6.00); WBC 8.6 thou/uL (4.0-11.0)
[2020-05-20 06:18] LABS: CREATININE 1.9 mg/dL (0.7-1.3); POTASSIUM 4.3 mmol/L (3.5-5.1)
--- NOTE | 2020-05-20 12:00 | NUR ---
F/u dc planning visit with the pt at bedside today. He is hoping to increase his mobility once his chest tubes are out and return home with HH ([facility] prior to admit). He is open to 5N rehab eval if needed. Pt is currently not at his baseline and is normally pretty indep at home. He notes that both dtrs Josefina and Frida should be on his spokesperons list. Frida Keegan to be added [phone]. Frida called to check on his this morning and is concerned he may need rehab prior to returning home. The attending and nursing was updated. 5N liason notified. Will follow along. No weekend dc anticipated.
--- NOTE | 2020-05-20 16:45 | NUR ---
PT HAS BEEN DROWSY ALL DAY, 0830 GARIBAY CATH PLACED D/T BLADDER SCAN SHOWING 650ML RESIDULE. GARIBAY PLACED AND 1400 OUTPUT POST CATH. PT HAS HAD A COUGH AFTER ORAL INTAKE OF THIN LIQUIDS, SPEECH NOTIFIED AND RE EVALUATED FOR NECTAR THICK LIQUIDS. PLAN IS TO MONITORS PT BUN AND CREAT LEVELS DUE TO INCREASE. PT ALERT TO SELF AND CONT TO BE Q2 TURN, STILL NO BM, SUPP GAVE PER ORDERS. WILL CONT TO MONITOR AT THIS TIME.
--- NOTE | 2020-05-20 16:49 | NUR ---
PT ALERT AND ORIENTED X4. PT CHEST TUBE DRESSING CHANGED, BUBBLING NOTED AND LEAK PRESENT, АЛЕКСАНДР MADE AWARE OF THIS, PT NOTED TO HAVE INSPIRATORY WHEEZES TO LOWER LEFT LOBE. PT CONT ON COMMUNICATIONS AGENT PUMP WITH FENT RUNNING AT 15MCG. DENIES PAIN AT THIS TIME, RESP EVEN AND UNLABORED AND ON ROOM AIR
[2020-05-21 00:08] VITALS: BP 132/46
[2020-05-21 04:00] VITALS: BP 136/87
--- NOTE | 2020-05-21 05:11 | NUR ---
ASSESSMENTS CHARTED, DENIES PAIN, PLATE GLASS GRINDER PUMP INFUSING CHARTED, CHEST TUBE SITE REINFORCED, INTACT, SLEPT ON THE CHAIR, AFIB ON THE MONITOR, STABLE THROUGH THE NIGHT DENIES SOB, WILL CONTIUE TO MONITOR AND FOLLOW POC
[2020-05-21 07:17] VITALS: BP 149/82
[2020-05-21 11:35] VITALS: BP 111/49
--- NOTE | 2020-05-21 15:00 | NUR ---
5N eval completed and they can accept the pt once medically stable and pending bed availability. Pt still with chest tubes in place. Will reassess on Sunday.
[2020-05-21 15:08] VITALS: BP 155/53
[2020-05-21 19:16] VITALS: BP 140/65
--- NOTE | 2020-05-21 19:37 | NUR ---
ASSUMED CARE SHIFT CHANGE. ASSESSMENTS CHARTED.MEDS GIVEN. VSS. PAIN MANAGED BOBBIN COLLECTOR PUMP FENTANYL. CHEST TUBES REMAIN INTACT TO SUCTION. OUTPUT CHARTED.FAMILY AT BEDSIDE, UPDATED ON POC. O2 SATS WNL ROOM AIR. IN NAP. DENIES NEEDS AT THIS TIME. CONTINUING POC. REPORT PASSED ONTO NOC RN.
[2020-05-22 03:50] VITALS: BP 126/60
[2020-05-22 04:32] LABS: CALCIUM 7.9 mg/dL (8.5-10.1); CREATININE 1.6 mg/dL (0.7-1.3); POTASSIUM 4.6 mmol/L (3.5-5.1)
[2020-05-22 04:36] LABS: HEMATOCRIT 24.3 % (42.0-52.0); MCH 29.4 pg (26.0-34.0); MCHC 32.8 g/dL (28.0-37.0); MCV 89.6 fL (80.0-100.0); RBC 2.71 mil/uL (4.50-6.00); RDW 15.8 % (10.5-14.5); WBC 8.2 thou/uL (4.0-11.0)
--- NOTE | 2020-05-22 05:16 | NUR ---
ASSUMED PT CARE AT CHANGE OF SHIFT, AFIB ON THE MONITOR WITH OCCASSIONAL PVCS, PAIN WELL MANAGED WITH MACHINE PULLER OVER FENTANYL, DENIES SOB, 02SATS STABLE ON RA, CHEST TUBE SITE REINFORCED, REMAINED STABLE OVERNIGHT, WILL CONTINUE TO MONITOR AND FOLLOW POC
[2020-05-22 07:16] VITALS: BP 145/51
[2020-05-22 11:11] VITALS: BP 134/56
[2020-05-22 15:16] VITALS: BP 143/98
--- NOTE | 2020-05-22 17:53 | NUR ---
PATIENT SITTING UP IN CHAIR THROUGH OUT THE DAY. DENIES ANY PAIN OR CONCERNS. ORDERS BY DR. FOUNTAIN TO D/C FENTANYL PUMP. WASTED 40 ML WITH SECOND RN. BLUE NARCOTIC SHEET SENT TO PHARMACY. CHEST TUBES REMAIN IN PLACE TO -20 SUCTION. PATIENT SLOWLY PROGRESSING. AND DAUGHTER CURRENTLY AT BEDSIDE.
[2020-05-22 19:45] VITALS: BP 155/98
--- NOTE | 2020-05-23 00:58 | NUR ---
PT ALERT AND ORIENTED X3. REORIENTED PT TO DATE AN TIME, YEAR. HE IS MILDLY CONFUSED. FOLLOWS COMMANDS. SAT DOWN TO 82% ON RA, PLACED PT ON 02 2LNC. NOTIFIED RT. SAT INCREASED TO 98-99% ON 2LNC. CHEST TUIBES BOTH HAVE AIR LEAKS BOTH TO - 20 CM SUCTION. PT REFUSED TO GO BACK TO BED TO SLEEP. HE SITS UP IN RECLINER CHAIR. GARIBAY INTACT TO DD DRAINING CLEAR YELLOW URINE. VSS. WILL CONTINUE TO MONITOR FOR CHANGES.
[2020-05-23 05:01] VITALS: BP 136/56
[2020-05-23 07:40] VITALS: BP 135/55
[2020-05-23 11:42] VITALS: BP 145/63
[2020-05-23 15:05] VITALS: BP 139/65
[2020-05-23 19:28] VITALS: BP 159/52
[2020-05-24 03:12] LABS: HEMATOCRIT 26.1 % (42.0-52.0); HEMOGLOBIN 8.8 gm/dL (14.0-18.0); MCH 30.3 pg (26.0-34.0); MCHC 33.8 g/dL (28.0-37.0); MCV 89.9 fL (80.0-100.0); RBC 2.9 mil/uL (4.50-6.00); RDW 16.3 % (10.5-14.5); WBC 10.3 thou/uL (4.0-11.0)
[2020-05-24 05:08] VITALS: BP 146/62
[2020-05-24 07:46] VITALS: BP 157/68
[2020-05-24 11:07] VITALS: BP 129/57
--- NOTE | 2020-05-24 11:24 | NUR ---
ASSUMED PT CARE FROM TAMIKA ESPARZA. PT SITTING UP IN THE CHAIR. PT CONSISTANTLY STATES HE IS COLD NO MATTER HOW MANY BLANKETS ARE PRESENT. PT ASSESSMENT PERFORMED. CHEST XRAY ORDERED BY DR BORREGO DUE TO ISAIAS STATES HE IS MORE LETHARGIC THAN PREVIOUSLY REPORTED. VSS. WILL CONTINUE TO MONITOR AND FOLLOW POC.
[2020-05-24 13:31] LABS: BE(vivo) -7.2 mmol/L (-2 to +3); HCO3 17.6 mmol/L (22.0-26.0); PCO2 32.2 mmHg (35.0-45.0); PO2 76.8 mmHg (80.0-100.0); pH 7.355 (7.360-7.450)
[2020-05-24 16:22] VITALS: BP 137/74
--- NOTE | 2020-05-24 16:48 | NUR ---
PT RESTING IN CHAIR, GRZEGORZ REHMAN IN ROOM, INJECTING DOXYCYLINE INTO CHEST TUBES. CHEST TUBES CURRENTLY CLAMPED, WILL BE UNCLAMPED AT 1745. PT DENIES PAIN. ASSESSMENT PERFORMED CHARTED. VSS. WILL CONTINUE TO MONITOR.
--- NOTE | 2020-05-24 17:46 | NUR ---
CHEST TUBES UNCLAMPED PER SONIA DUBOSE ORDERS. PT IS SITTING UP AND ATTEMPTING TO EAT SUPPER. PT HAS ATE 8 BITES OF HIS DINNER THIS FAR. WILL CONTINUE TO MONITOR AND FOLLOW POC.
--- NOTE | 2020-05-24 19:06 | PATH ---
[facility] [address] [place] [address] PATHOLOGY RPT PROCEDURE Name: ANYA MOTA Room #: 206-P ADM IN M.R.#: [id number] Admission: 05/17/20 Date of : 30 Discharge: Report #: [id number] Path Case #: [id number] [facility] Accession Number: [id number] . 01 Material submitted: . PART A: pleura - PARIETAL PLEURA - FS. Modifiers: parietal PART B: pleura - RIGHT PLEURAL EXUDATE. Modifiers: right . 01 Clinical history: . PARIETAL PLEURA BIOPSY - MARKEDLY ATYPICAL CELLS,DIFFERENTIAL DIAGNOSIS . 02 Frozen section diagnosis: . FROZEN SECTION DIAGNOSIS: (Yaneli Herman MD) . FSA1, Parietal pleura, biopsy: - Markedly atypical cells, differential diagnosis includes sarcoma, mesothelioma or poorly differentiated carcinoma amongst reactive processes. . These findings are discussed with Dr. Steve Ch in OR7 at [facility] and a written report is placed in the patient's chart. . Frozen section performed at [facility], [address] [place] [address]. . . FROZEN SECTION GROSS DESCRIPTION: Specimen is received fresh from the OR, labeled with the patient's name, and "parietal pleura", consists of a hemorrhagic red-milton fragment of tissue measuring 1.6 x 0.5 x 1 cm. Print Finisher sections of this piece of tissue are submitted for frozen section as FSA1, this is subsequently submitted for permanent sections as A1. The unfrozen portion of the tissue is submitted for permanent sections only as A2. (IUV:iggy;05/18/2020) IZV/QMS . 02 Diagnosis: A. Pleura, parietal pleura, biopsy: - POSITIVE FOR MALIGNANCY; MOST COMPATIBLE WITH A SARCOMATOID CARCINOMA (PLEASE SEE COMMENT). . B. Right pleural exudate, biopsy: - POSITIVE FOR MALIGNANCY; MOST COMPATIBLE WITH A SARCOMATOID CARCINOMA (PLEASE SEE COMMENT). [facility] 05/24/2020 1124 Local . [address] [address] PATHOLOGY RPT PROCEDURE Name: ANYA MOTA Room #: 206-P ADM IN M.R.#: [id number] Admission: 05/17/20 Date of : 30 Discharge: Report #: [id number] Path Case #: [id number] Comment: Examination shows a poorly differentiated malignancy with a few spindle cell areas as well as epithelioid areas. Gland formation, squamous fan formation as well as other features to suggest delineation are not identified. Multiple properly controlled immunohistochemical stains are performed and interpreted as follows amongst the malignant cells: . CK7 on block A1 - Non-reactive CK20 on block A1 - Non-reactive Calretinin on block A1 - Non-reactive WT-1 on block A1 - Non-reactive HBME-1 on block A1 - Non-reactive Vimentin on block A1 - Reactive Everett-Ep4 on block A1 - Non-reactive . The preliminary round of immunohistochemical stains were performed in order to identify the possible cell lineage. After the initial round of immunohistochemical stains on block A1 multiple additional properly controlled immunohistochemical stains are performed on block A2 and interpreted as follows within the malignant cells: . AE1/AE3 - Scattered rare cell with membranous reactivity SARAH - Non-reactive Desmin - Scattered rare cells with reactivity BCL-2 - Non-reactive CD34 - Non-reactive CD45 - Non-reactive S-100 - Non-reactive MART-1 - Non-reactive HMB-45 - Non-reactive Muscle specific actin - Scattered rare cells with reactivity SMA - Strong membranous reactivity CK NICHOLE - Membranous reactivity identified within greater than 90% of the malignant cells p63 - Non-reactive D2-40 - Non-reactive PSA - Non-reactive PSAP - Non-reactive . The immunohistochemical stains support a sarcomatoid carcinoma. History of prostatic carcinoma is gathered from the EMR. A PSA and PSAP are ordered due to the same and are non-reactive; however, a metastatic prostatic sarcomatoid carcinoma cannot be entirely excluded (sarcomatoid prostatic carcinoma is usually PSA and PSAP non-reactive). The non-reactive immunohistochemical stains argue against a sarcomatoid mesothelioma, an angiosarcoma, as well as a high grade lymphoma. . Dr. Shay Latif has seen outside medical sales representative slides of this case and concurs [facility] [address] [place] [address] PATHOLOGY RPT PROCEDURE Name: ANYA MOTA Room #: 206-P ADM IN M.R.#: [id number] Admission: 05/17/20 Date of : 30 Discharge: Report #: [id number] Path Case #: [id number] with my diagnosis. Findings of this case are conveyed to Dr. hC in the afternoon of 05/24/2020. (IUV/db; 05/24/2020) . 02 Electronically signed: . Yaneli Herman MD, Pathologist NPI- [id number] . 01 Gross description: . A. PLEASE SEE GROSS DESCRIPTION UNDER FROZEN SECTION. . B. The specimen is received in formalin, labeled "Anya Moat, right pleural exudate". Received is a large amount of blood coagulum admixed with gutierrez-brown exudate and possible pink-gutierrez tissue measuring 13.8 x 10.5 x 3.1 cm in aggregate dimensions. The specimen is submitted representatively in cassettes B1 and B2. (CAA; 05/19/2020) QA/S 05/19/2020 1648 Local . 02 Pathologist provided ICD-10: C38.4 . 02 CPT . 397071, [id number], 812309, [id number], [id number] Specimen Comment: A courtesy copy of this report has been sent to [phone] Specimen Comment: [phone], Specimen Comment: Report sent to ,DR ZEE / DR HALL Performed at: 01 [facility] [address] [place] [address] [address], [place], [place] [id number] MD Renzo Lambert MD Phone: [phone] Performed at: [address] [id number] MD Yaneli Herman MD Phone: [phone]
[2020-05-24 20:05] VITALS: BP 134/61
[2020-05-25 01:07] VITALS: BP 135/64
--- NOTE | 2020-05-25 04:01 | NUR ---
ASSUMED CARE AT 1900. PT ORIENTED TO SELF, TIME, AND PLACE, SLIGHTLY DROWSY. REPORTS PAIN IN RIGHT CHEST/BACK BUT DECLINE PAIN MEDS. AROUND 2200, PT STARTED TO MOAN/GROAN, LEAN FORWARD IN CHAIR, AND MAKE LITTLE SENSE WHEN TALKING. ABOUT MIDNIGHT, WITH ASSISTANCE OF TWO OTHER NURSES, GOT PT FROM CHAIR TO BED; HE HAD DARK BROWN LIQUID STOOL. REDRESSED RIGHT CHEST TUBES DRESSING WAS VERY LOOSE; NOTED DARK BROWN DRAINAGE ON GAUZE; REWRAPPED W/XEROFORM, GAUZE, AND FOAM TAPE; CONTINUES TO HAVE DARK RED/BROWN DRAINAGE INTO ATRIUM. GAVE PAIN MEDS AND BENADRYL TO HELP PT CALM DOWN AND REST. PT WOKE UP ABOUT 0400, VERY RESTLESS, PULLING AT GOWN AND BLANKETS, NOT TALKING COHERENTLY. WILL CONTINUE TO MONITOR.
[2020-05-25 05:42] VITALS: BP 131/44
[2020-05-25 07:46] VITALS: BP 143/64
--- NOTE | 2020-05-25 08:05 | NUR ---
BPCI ADVANCED PLACED IN PATIENTS CHART TO BE READ BY FAMILY/CAREGIVER
[2020-05-25 09:12] LABS: CALCIUM 8.6 mg/dL (8.5-10.1); CREATININE 1.9 mg/dL (0.7-1.3); POTASSIUM 5.2 mmol/L (3.5-5.1)
[2020-05-25 10:17] LABS: BE(vivo) -6.9 mmol/L (-2 to +3); HCO3 17.2 mmol/L (22.0-26.0); PCO2 29.3 mmHg (35.0-45.0); PO2 71.3 mmHg (80.0-100.0); pH 7.387 (7.360-7.450); sO2 94.5 % (92.0-98.0)
[2020-05-25 11:27] VITALS: BP 97/73
--- NOTE | 2020-05-25 12:31 | NUR ---
COMMUNICATED WITH DR. BORREGO PATIENT PRESENTING VERY LATHARGIC THIS MORNING. ORDERS FOR ABG GIVEN, RESULTS COMMUNICATED TO DR. BORREGO. NO FURTHER ORDERS AT THIS TIME. WILL CONTINUE TO MONITOR PATIENT STATUS.
[2020-05-25 14:39] VITALS: BP 97/59
--- NOTE | 2020-05-25 16:11 | NUR ---
NOTED POTASSIUM OF 5.[address] BORREGO. NO NEW ORDERS, STATES WILL RECHECK IN AM TOMORROW.
[2020-05-25 20:55] VITALS: BP 128/55
[2020-05-26 05:15] VITALS: BP 144/49
[2020-05-26 07:32] VITALS: BP 126/48
--- NOTE | 2020-05-26 07:37 | NUR ---
PATIENT CARES WERE ASSUMED AT SHIFT CHANGE. PATIENT WAS ASSESSED AND MEDS WERE PASSED. PATIENT WAS VERY RESTLESS AT THE START OF THIS SHIFT. BENADRYL IVP WAS GIVEN AND PATIENT WENT RIGHT TO SLEEP. NURSING PASSED ON THE PAIN MEDS DUE TO THIS PATIENT WAS IN A DEEP SLEEP. ROUNDS WERE DONE. THE BED IS IN A LOW POSITION AND THE ALARM IS ON.
[2020-05-26 09:15] LABS: HEMATOCRIT 24.8 % (42.0-52.0); HEMOGLOBIN 8.1 gm/dL (14.0-18.0); MCHC 32.5 g/dL (28.0-37.0); RBC 2.78 mil/uL (4.50-6.00); RDW 16.6 % (10.5-14.5); WBC 11.6 thou/uL (4.0-11.0)
[2020-05-26 09:32] LABS: CALCIUM 8.4 mg/dL (8.5-10.1); CREATININE 1.8 mg/dL (0.7-1.3); POTASSIUM 4.9 mmol/L (3.5-5.1)
[2020-05-26 11:22] VITALS: BP 120/80
[2020-05-26 15:20] VITALS: BP 128/45
[2020-05-26 20:30] VITALS: BP 117/75
[2020-05-27 00:30] VITALS: BP 113/49
[2020-05-27 04:45] VITALS: BP 120/63
--- NOTE | 2020-05-27 06:46 | NUR ---
PATIENTS CARES WERE ASSUMED AT SHIFT CHANGE. PATIENT WA ASSESSED AND MEDS WERE PASSED. ONE CHEST TUB REMAINS. PATIENT IS PROGRESSING WELL TO DISCHARGE. ROUNDING WAS DONE. THE BED IS IN A LOW AND LOCKED POSITION.
[2020-05-27 07:15] VITALS: BP 116/43
[2020-05-27 15:37] VITALS: BP 124/52
--- NOTE | 2020-05-27 16:47 | NUR ---
DC planning visit with pt and his at bedside today. Pt has one chest tube remaining and is working with therapy. He is on 2lnc and reports generalized weakness. 5N acute rehab has been following along and may be able to accept him on a "low endurance" program. Pt with concerns about 3hr/intensive program. SNF options also discussed. Message left for pt's dtr Frida per their request. They are open to SNF referrals as a plan B for korina sarmiento. Pt hoping to get chest tube out in 1-2 days and hopes this will improve his mobility. He notes he has an oncologist to f/u with as an outpatient. He will likely need home o2. Will see how he does with therapy tomorrow and discuss with the care team. Dc corporate event planner to fax referrals to [facility] should SNF be recommended.
--- NOTE | 2020-05-27 16:59 | NUR ---
FAXED SKILLED REFERRAL AND NEGATIVE COVID RESULT (05/17/20) TO [facility]. WILL CONFIRM THEY RECEIVED AND BED AVAILABILITY.
--- NOTE | 2020-05-27 17:17 | NUR ---
ASSUMED CARE SHIFT CHANGE. ASSESSMENTS CHARTED.MEDS GIVEN PER APR. VSS. PT MORE ALERT TODAY, CONFUSED AT TIMES. PT UP WITH PHYS THERAPY TOLERATING LESS THAN ADEQUATE. CHEST TUBE REMAINS IN PLACE TO SUCTION. FAMILY AT BEDSIDE THROUGHOUT SHIFT. PT REMAINS ON 2L O2, SATS WNL. PT CURRENTLY EATING DINNER WITH FAMILY AT BEDSIDE. DENIES NEEDS. CONTINUING POC. WILL PASS ON REPORT TO SCOTT LUNDBERG.
[2020-05-27 19:31] VITALS: BP 115/56
[2020-05-27 23:41] VITALS: BP 117/49
[2020-05-28] VITALS (7 sets, daily range): BP systolic 118–136; BP diastolic 50–62
--- NOTE | 2020-05-28 05:52 | NUR ---
PATIENTS CARES WERE ASSUMED AT SHIFT CHANGE. PATIENT WAS ASSESSED AND MEDS WERE PASSED. PATIENT HAS ONE CHEST TUB IN PLACE. DRAINAGE CONTINUES TO DECREASE. PATIENT IS VERBALIZING HE WANTS TO GO TO REHAB " SO I CAN GET OUT OF THE BED" ROUNDING WAS DONE, BED IS IN A LOW AND LOCKED POSITION, THE BED ALARM IS ON.
--- NOTE | 2020-05-28 13:02 | NUR ---
Case discussed with the care team including CTS and 5N manager inpatient. Pt has one chest tube remaining with lots of outpt. Pt is very weak and appetite poor. Dtr Frida called back this am regarding dc planning efforts. LTAC recommendations or palliative care consult discussed. Family wanting ONC to revisit regarding prognosis. Nursing to call onc. LTAC may be best option as chest tube may not be dc'd soon. Dtr agreeable to [facility] referral as it is close to this area. 5N on hold along with SNF referrals. Dr. Steve consulted as well. Referral faxed to [facility] for their consideration. Will follow.
--- NOTE | 2020-05-28 17:20 | NUR ---
PT CARE ASSUMED AT 0700. ASSESSMENTS CHARTED. MEDICATIONS CHARTED. RAC IV. ATRIAL FIBRILLATION. EXT MALE CATHETER. O2 2LPM NC. RT CHEST TUBE; CHAMBER CHANGED AFTER SPEAKING WITH JERSON REHMAN. PLACED PT IN CHAIR AFTER HE INSISTED UPON SITTING ON EDGE OF THE BED.
[2020-05-29] VITALS (7 sets, daily range): BP systolic 114–138; BP diastolic 36–64
--- NOTE | 2020-05-29 06:35 | NUR ---
pt assisted back to bed assist of 2 pivot only, turning as needed, scheduled pains given, vss, ct dressing reinforced, ct to suction with seriosang. fluids, voiding per urinal, legs elevated per bed with 2+edema, will con't to monitor per ppoc.
[2020-05-29 08:08] LABS: ABSOLUTE NEUTROPHILS 13.5 thou/uL (1.4-8.2); BASOPHILS 0.3 % (0.0-2.0); EOSINOPHILS 0.2 % (0.0-3.0); HEMATOCRIT 24.6 % (42.0-52.0); HEMOGLOBIN 7.9 gm/dL (14.0-18.0); LYMPHOCYTES 5.7 % (24.0-44.0); MCH 28.1 pg (26.0-34.0); MCHC 32.1 g/dL (28.0-37.0); MCV 87.5 fL (80.0-100.0); MONOCYTES 10.7 % (1.0-8.0); PLATELET COUNT 369 thou/uL (150-400); POLYS 83.1 % (36.0-66.0); RBC 2.81 mil/uL (4.50-6.00); RDW 16.5 % (10.5-14.5); WBC 16.3 thou/uL (4.0-11.0)
[2020-05-29 08:20] LABS: ALBUMIN 1.6 g/dL (3.4-5.0); CALCIUM 8.7 mg/dL (8.5-10.1); CREATININE 1.9 mg/dL (0.7-1.3); MAGNESIUM 1.9 mg/dL (1.8-2.4); PHOSPHORUS 2.5 mg/dL (2.6-4.7); POTASSIUM 5.3 mmol/L (3.5-5.1); TOTAL BILIRUBIN 0.5 mg/dL (0.2-1.0); TOTAL PROTEIN 6.1 g/dL (6.4-8.2)
--- NOTE | 2020-05-29 11:43 | NUR ---
PT IS AXOX2-3, PLEASANT; PT KNOWS SELF AND THAT HE IS SICK, AND IN THE HOSPITAL, BUT NOT THE DATE. VSS, AFEBRILE, AFIB ON MONITOR. PT HAS R LATERAL CHEST TUBE. PT RESTING COMFORTABLY IN BED, PAIN MGMT RX SCHEDULED. POC IS TO CONTINUE TO MONITOR CHEST TUBE, DRAINAGE. CASE MGMT CONSULTED; PT AWAITING POSS PLACEMENT IN LTAC. FALL PRECAUTIONS IN PLACE, NO CONCERNS AT THIS TIME.
--- NOTE | 2020-05-30 03:49 | NUR ---
pt resting on and off thru the shift, repositioned and pain meds given for c/o pain, assited with urinal to void, vss, ct to suction, will con't to monitor per ppoc.
[2020-05-30 04:06] VITALS: BP 133/50
[2020-05-30 04:40] LABS: ABSOLUTE NEUTROPHILS 11.9 thou/uL (1.4-8.2); BASOPHILS 0.1 % (0.0-2.0); EOSINOPHILS 0.5 % (0.0-3.0); HEMATOCRIT 25.2 % (42.0-52.0); LYMPHOCYTES 6.2 % (24.0-44.0); MCH 27.9 pg (26.0-34.0); MCHC 31.8 g/dL (28.0-37.0); MCV 87.9 fL (80.0-100.0); MONOCYTES 11.1 % (1.0-8.0); PLATELET COUNT 354 thou/uL (150-400); POLYS 82.1 % (36.0-66.0); RBC 2.86 mil/uL (4.50-6.00); RDW 16.6 % (10.5-14.5); WBC 14.4 thou/uL (4.0-11.0)
[2020-05-30 04:46] LABS: CALCIUM 8.6 mg/dL (8.5-10.1); CREATININE 1.9 mg/dL (0.7-1.3); POTASSIUM 4.9 mmol/L (3.5-5.1)
[2020-05-30 08:00] VITALS: BP 131/55
[2020-05-30 12:00] VITALS: BP 104/56
--- NOTE | 2020-05-30 16:56 | NUR ---
PT IS AXOX2-3; PT KNOWS SELF, AND THAT HE IS IN HOSPITAL; KNOWS SITUATION OCCASIONALLY, AND DOES NOT KNOW TIME. PT AT THE BEDSIDE; PT HAS BEEN SLEEPING MOST OF SHIFT, TALKING WHILE SLEEPING. VSS, AFEBRILE, AFIB WITH PVCs ON MONITOR. DR COLE CONSULTED, DR FOUNTAIN CONSULTED. POC IS TO CONTINUE TO MONITOR R LATERAL CHEST TUBE; PT TO HAVE DOXY PLEURODESIS ON 05/31/20. FALL PRECAUTIONS IN PLACE. NO CONCERNS AT THIS TIME.
[2020-05-30 19:37] VITALS: BP 123/47
[2020-05-31 03:40] VITALS: BP 118/63
[2020-05-31 04:54] LABS: ABSOLUTE NEUTROPHILS 12.1 thou/uL (1.4-8.2); BASOPHILS 0.4 % (0.0-2.0); EOSINOPHILS 0.5 % (0.0-3.0); HEMATOCRIT 23.6 % (42.0-52.0); HEMOGLOBIN 7.6 gm/dL (14.0-18.0); LYMPHOCYTES 6.7 % (24.0-44.0); MCH 28.1 pg (26.0-34.0); MCHC 32.1 g/dL (28.0-37.0); MCV 87.7 fL (80.0-100.0); MONOCYTES 11.8 % (1.0-8.0); PLATELET COUNT 334 thou/uL (150-400); POLYS 80.6 % (36.0-66.0); RBC 2.69 mil/uL (4.50-6.00); RDW 16.3 % (10.5-14.5)
[2020-05-31 05:15] LABS: ALBUMIN 1.4 g/dL (3.4-5.0); CALCIUM 8.9 mg/dL (8.5-10.1); MAGNESIUM 2.1 mg/dL (1.8-2.4); PHOSPHORUS 2.8 mg/dL (2.5-4.9); TOTAL BILIRUBIN 0.6 mg/dL (0.2-1.0); TOTAL PROTEIN 5.8 g/dL (6.4-8.2)
--- NOTE | 2020-05-31 05:19 | NUR ---
SLEPT PART OF SHIFT. ASSIST TO REPOSITION EVERY 2-3 HOURS FOR COMFORT AND SKIN CARE. CHEST TUBE REMAINS WITH AIR LEAK AND LEAKING ON CHUX. PAIN MEDICATION GIVEN NEEDED FOR COMFORT. WORKING ON GOALS AND PLAN OF CARE FOR NOC. PLAN FOR DOXY PLEURODESIS THIS AM. TALKED WITH DAUGHTER LEIGH RAMACHANDRAN NOC FOR 5 MIN CHECKING ON STATUS. CONTINUE TO ASSES CLOSELY.
[2020-05-31 08:01] VITALS: BP 96/41
--- NOTE | 2020-05-31 10:19 | NUR ---
ASSUMED PT CARE AT 0700, PT SITTING IN BED. PT ASSESSMENT PERFORMED CHARTED. DR ABRAMS INSERTED DOXY IN PLEURAL SPACE, CHEST TUBES CLAMPED AT THAT TIME. CHEST TUBES UNCLAMPED 45 MINUTES LATER. PTS VSS. WILL CONTINUE TO MONITOR AND FOLLOW POC.
[2020-05-31 11:30] VITALS: BP 125/60
[2020-05-31 16:09] VITALS: BP 142/64
--- NOTE | 2020-05-31 16:54 | NUR ---
PT BACK IN BED FOLLOWING TIME IN THE CHAIR THIS AFTERNOON. PT HAD A MODERATE SIZE BOWEL MOVEMENT. PT STATES IS C/O OF BACK PAIN. PRN PAIN MEDICATION GIVEN. PTS VSS. WILL CONTINUE TO MONITOR AND FOLLOW POC.
--- NOTE | 2020-05-31 17:22 | NUR ---
spoke with dtr at length, dtr Mirlande. Discussed LTAC, skilled care and ltc. Dtr wants to sp phys. Requested Dr Guzman call dtr.
[2020-05-31 19:22] VITALS: BP 98/63
[2020-06-01 04:21] VITALS: BP 121/89
--- NOTE | 2020-06-01 06:10 | NUR ---
PT SLEEPS ON AND OFFTHRU THE NOC, ALERT TO SELF WITH CONFUSION, REPOSITIONING NEEDED, CT WITH SEROSANG. DRAINAGE TO 20CM OF SUCTION WITH AIRLEAK, PRN PAIN MEDS SCHEDULED, MUCH ENCOURAGMENT GIVEN THRU THE NOC, WILL CON'T TO MONITOR PER PPOC.
[2020-06-01 07:45] VITALS: BP 122/72
[2020-06-01 08:43] LABS: HEMOGLOBIN 8.2 gm/dL (14.0-18.0); MCH 28.9 pg (26.0-34.0); MCHC 32.9 g/dL (28.0-37.0); RBC 2.84 mil/uL (4.50-6.00); RDW 16.4 % (10.5-14.5); WBC 14.2 thou/uL (4.0-11.0)
[2020-06-01 11:00] VITALS: BP 84/53
--- NOTE | 2020-06-01 13:43 | NUR ---
VAT CONSULTED FOR PIV PLACEMENT. LEFT AC PIV WITH PHLEBITIS. WHEN REMOVED, PUS NOTED AT SITE. INFORMED TAMIKA URIARTE. ATTEMPTED X2 TO INSERT PIV, WITHOUT SUCCESS. LEFT UPPER BRACHIAL MIDLINE PLACED, TRIMMED 15CM WITH 1CM EXTERNAL. PT TOLERATED WELL. POSITIVE FLUSH AND BLOOD RETURN. RELEASED FOR USE.
--- NOTE | 2020-06-01 14:22 | NUR ---
PT RESTING COMFORTABLY. CHEST TUBE IN PLACE WITH DARK SANGENOUS DRAINAGE. THORACOTOMY DRESSING IN PLACE C/D/I. PT HAD PIV IN RIGHT AC THAT WAS RED PAINFUL, LINE WAS DC'D AND SENT TO LAB FOR CULTURES. IV ACCESS TEAM PLACED A MIDLINE IN LEFT BICEP. PT AFEBRILE, ADEQUATE UOP, DECREASED APPETITE, NO BM. PT NOW DNR. PT AND FAMILY HAVE BEEN UPDATED AND EDUCATED ON PT CONDITION AND POC. PT SLOWLY PROGRESSING TOWARDS POC.
--- NOTE | 2020-06-01 14:48 | NUR ---
Updated [facility] no discharge today. Dtr wanting to sp with phys regarding prognosis. Requested phys call dtr. Discussed with dtr LTAC, hospice, HH, pvt duty and ltc. Dtr reports patient needs to be able to use walker to ambulate and independnet with adls before returning home. If choose hospice dtr would be interested in hospice house eval. casemgt following.
[2020-06-01 15:45] VITALS: BP 99/75
[2020-06-01 19:45] VITALS: BP 123/65
[2020-06-02 03:50] VITALS: BP 126/47
--- NOTE | 2020-06-02 04:43 | NUR ---
ASSUMED PT CARE CARE AT CHANGE OF SHIFT, PT IS AWAKE, ALERT AND ORIENTED, PERIODS OF CONFUSION AND FORGETFULL NOTED, PAIN MANAGED WITH HYDROCODONE, AFIB WITH PVCS ON TELE, R.CHEST TUBE IN PLACE; DRESSING CHANGED, CT TO SUCTION AT -20, SANGUINEOUS DRAINAGE, REPOSITIONING MAINTAINED; NO NEEDS AT THIS TIME ; POSSIBLE DC WITH HOSPICE, WILL PASS PASS ON REPORT
[2020-06-02 07:32] VITALS: BP 127/41
--- NOTE | 2020-06-02 09:47 | NUR ---
last evening Dr Evi chakraborty sp with dtr. Discussion of hospice services. Plan [facility] eval this am. Sp with jonathan Nogueira last evening. Discussed hospice services at home, house or facility. Interest in hospice house eval. Plan eval this am. faxed clinical to [facility]. SP with [facility] who will eval this am.
[2020-06-02 11:04] VITALS: BP 107/40
[2020-06-02 15:12] VITALS: BP 118/42
[2020-06-02 19:45] VITALS: BP 150/41
--- NOTE | 2020-06-03 01:16 | NUR ---
ASSUMED PT CARE AT CHANGE OF SHIFT, PT IS DROWSY, RESPONDS TO VERBAL COMMAND, ASSESSMENTS CHARTED, COMFORT CARE ORDERS NOTED, PT MILDLY AGITATED AND SEEMED IN PAIN, MORPHINE GIVEN PER APR, PT BACK TO SLEEP, REMAINS AFIB/PVCS, RATE CONTROLLED ON THE 70S, REPOSITIONED Q2HRS AND PRN FOR COMFORT, NO NEEDS AT THIS TIME, WILL CONTINUE TO MONITOR AND FOLLOW POC
[2020-06-03 05:14] VITALS: BP 103/46
[2020-06-03 07:32] VITALS: BP 115/35
[2020-06-03 11:18] VITALS: BP 110/32
[2020-06-03 12:15] VITALS: BP 126/75
--- NOTE | 2020-06-03 12:18 | NUR ---
Pt reevaluated for the hospice house and accepted for admission this evening. [facility] arranged for 1930 pickup this evening. The patrol sergeant has updated the pt's family and they will meet him at the hospice house around 8pm this evening. Higinoi (len) requested per nursing and results to be faxed to the house. All parties updated on the dc plan. Pt's outside the hospital DNR from and dc summary are ready to be sent with the pt this evening. Nursing to call report.
--- NOTE | 2020-06-03 15:15 | NUR ---
PT. REVALUATED BY CARLOS FROM [facility]. PT NOW QUALIFIES FOR DISCHARGE AND ACCEPTANCE TO [facility]. PT'S TIME OF DEPARTURE CURRENTLY SET AT 1930. PT HAS BEEN VERY LETHARGIC TODAY. PT DOES GET AGITATED WITH ANY MOVEMENT. GARIBAY CATHETER PLACED THIS AM FOR COMFORT MEASURES. PT WAS INCONTINENT ON CORPORATE CLAIMS EXAMINER AND IS UNABLE TO VERBALIZE NEED TO URINATE TODAY DO TO MENTAL STATUS. PT IS BEING TURNED Q2 HOURS AND ORAL CARE IS BEING GIVEN Q2 HOURS AND PRN. PT UNABLE TO FULLY AWAKEN AT THIS TIME. PT UNABLE TO STATE NEEDS. COMFORT MEASURES IN PLACE. CARLOS FROM [facility] STATES PT'S FAMILY IS NOT COMING TO HOSPITAL TODAY BUT WILL MEET PT AT [facility] AT 1999 TONIGHT.
[2020-06-03 15:22] VITALS: BP 115/59
--- NOTE | 2020-06-03 18:37 | NUR ---
REPORT CALLED TO RUSSELL AT [facility]. [phone]. PT WILL LEAVE HERE WITH MIDLINE IN PLACE AND GARIBAY CATHETER IN PLACE.
--- NOTE | 2020-06-03 20:24 | NUR ---
1600- RN SPOKE WITH PT'S DAUGHTER SVEN. SVEN GIVEN PT UPDATE. SVEN STATES SHE AND HER MOM (PT'S ) IS GOING TO MEET THE PT AT [facility]. 1845- PT APPEARS MORE CLEAR THAN HE HAS BEEN ALL DAY. RN TOLD PT MESSAGE FROM DAUGHTER THAT SHE LOVED HIM AND PT REPLIED THAT HE LOVED HER TO. RN TOOK THIS MOMEMENT TO CALL PT'S DAUGHTER AND LET PT HAVE THE OPPORTUNITY TO TALK TO THE FAMILY. PT WAS ABLE TO SAY HE LOVED THEM BUT THEN HIS SPEECH BECAME VERY GARBLED AND HARD TO UNDERSTAND LIKE HE WAS PREVIOUSLY IN SHIFT. PT'S DAUGHTER WAS THANKFUL FOR THE CALL AND STATED SHE WILL STILL MEET PT AT [facility]. PT D/C TO [facility] VIA STRETCHER FOR TRANSPORTATION TO [facility] AT 1745. PT TRANSFERRED WITH PT BELONGINGS WELL PLEUREX DRAINS, GARIBAY CATHETER IN PLACE AND MIDLINE INPLACE.
== END 2020-06-03 20:03 | disposition hospice, home (50) | DRG 163 ==
LOC: ER 23:12 → EROBS 05-17 00:43 → 2N 05-17 00:43 → ICU 05-18 16:08 → 2N 05-19 17:32
PROVIDERS: Anesthesiology; Emergency Medicine; Hospitalist; Internal Medicine; Internal Medicine Pulmonary Disease; Nurse Practitioner; Nurse Practitioner Adult Health; Nurse Practitioner Family; Physician Assistant; Surgery Vascular Surgery; ADMIT Hospitalist; ATTEND Internal Medicine
DX: C38.4 Malignant neoplasm of pleura (principal); I50.23 Acute on chronic systolic (congestive) heart failure; J96.01 Acute respiratory failure with hypoxia; G93.41 Metabolic encephalopathy; E43 Unspecified severe protein-calorie malnutrition; J94.2 Hemothorax; N17.9 Acute kidney failure, unspecified; J91.0 Malignant pleural effusion; I13.0 Hypertensive heart and chronic kidney disease with heart failure and stage 1 through stage 4 chronic kidney disease, or unspecified chronic kidney disease; J95.811 Postprocedural pneumothorax; J98.11 Atelectasis; I48.20 Chronic atrial fibrillation, unspecified; E87.3 Alkalosis; N18.9 Chronic kidney disease, unspecified; E03.9 Hypothyroidism, unspecified; E11.22 Type 2 diabetes mellitus with diabetic chronic kidney disease; E11.42 Type 2 diabetes mellitus with diabetic polyneuropathy; D64.9 Anemia, unspecified; I48.0 Paroxysmal atrial fibrillation; R53.81 Other malaise; E87.5 Hyperkalemia; I08.1 Rheumatic disorders of both mitral and tricuspid valves; Z66 Do not resuscitate; I25.10 Atherosclerotic heart disease of native coronary artery without angina pectoris; D63.8 Anemia in other chronic diseases classified elsewhere; K80.20 Calculus of gallbladder without cholecystitis without obstruction; Z85.46 Personal history of malignant neoplasm of prostate; Z92.21 Personal history of antineoplastic chemotherapy; Z92.3 Personal history of irradiation; I25.2 Old myocardial infarction; Z95.5 Presence of coronary angioplasty implant and graft; Z82.49 Family history of ischemic heart disease and other diseases of the circulatory system; Z87.891 Personal history of nicotine dependence; Z68.26 Body mass index [BMI] 26.0-26.9, adult; Z79.01 Long term (current) use of anticoagulants; Z20.822 Contact with and (suspected) exposure to COVID-19
CPT/HCPCS: 10078; 10081; 27000; 47405; 50010; 50101; 50386; 50417; 50455; 51301; 52265; 54118; 56524; 56525; 56526; 56527; 56528; 62110; 62900; 65020; 65090; 65135; 70005; 85076